=== PATIENT | male | born 1935 ===

== ENCOUNTER 2017-10-19 04:18 | Inpatient (IN) | payer MEDICARE ==
[2017-10-19 04:22] VITALS: BMI 18.8
--- NOTE | 2017-10-19 05:24 | ED PDOC ---
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 As per EMS, patient was found walking outside, and stated that he was just trying to walk to his niece's house in [facility], from his place in [place]. As per patient, he reports he was walking down the stairs in his house in his slippers, which were slippery, and fell forward. Otherwise, denies loss of consciousness, chest pain, numbness, tingling, nausea, vomiting, and anticoagulant use. Patient offers no complaints at this time. PMD: Nehemias Grissom (Cristopher Awan) Past Medical History Reviewed: Historical Data, Nursing Documentation, Vital Signs - Medical History PMH: No Chronic Diseases - Surgical History Surgical History: No Surg Hx - Family History Family History: States: Unknown Family Hx <Cristopher Awan E - Last Filed: 10/19/17 06:09> <Rito Bueno - Last Filed: 10/19/17 06:39> Vital Signs: Last Vital Signs Temp 97.7 F 10/19/17 04:22 Pulse 96 H 10/19/17 04:22 Resp 18 10/19/17 04:22 BP 143/81 10/19/17 04:22 Pulse Ox 98 10/19/17 06:09 - Allergies Allergies/Adverse Reactions: Allergies Allergy/AdvReac Type Severity Reaction Status Date / Time No Known Allergies Allergy Verified 10/19/17 04:22 Review of Systems ROS Statement: Except As Marked, All Systems Reviewed And Found Negative Constitutional: Positive for: Other (head injury) Cardiovascular: Negative for: Chest Pain Gastrointestinal: Negative for: Nausea, Vomiting Skin: Positive for: Other (abrasions) Neurological: Negative for: Numbness (or tingling), Other (loss of consciousness ) <Cristopher Awan E - Last Filed: 10/19/17 06:09> Physical Exam - Reviewed Nursing Documentation Reviewed: Yes Vital Signs Reviewed: Yes - Physical Exam Appears: Positive for: No Acute Distress Head Exam: Positive for: NORMOCEPHALIC. Negative for: ATRAUMATIC (superficial abrasions to left side forehead and left side zygomatic arch but without tenderness to face) Skin: Positive for: Warm, Dry Eye Exam: Positive for: Normal appearance. Negative for: Periorbital swelling, Periorbital tenderness ENT: Positive for: Normal ENT Inspection Neck: Positive for: Normal, Painless ROM, Supple Cardiovascular/Chest: Positive for: Regular Rate, Rhythm Respiratory: Positive for: Normal Breath Sounds. Negative for: Accessory Muscle Use, Respiratory Distress Gastrointestinal/Abdominal: Positive for: Normal Exam, Soft. Negative for: Tenderness Back: Positive for: Normal Inspection Extremity: Positive for: Normal ROM (Normal except: left shoulder: superficial abrasion, no tenderness / swelling / deformity; right anterior knee: superficial abrasion no tenderness / swelling / deformity; left anterior mid femur: minimal ecchymosis, mild tenderness, no swelling / deformity; bilateral knees: full ROM actively, no tenderness / swelling / deformity) Neurologic/Psych: Positive for: Alert, Oriented (x2, pt knows who the president is) <Cristopher Awan E - Last Filed: 10/19/17 06:09> - ECG O2 Sat by Pulse Oximetry: 98 (RA) Pulse Ox Interpretation: Normal - Radiology X-Ray: Interpreted by Me (L shoulder, R knee, L hip, pelvic, chest x-rays) X-Ray Interpretation: No Acute Disease <Cristopher Awan E - Last Filed: 10/19/17 06:09> - Laboratory Results Result Diagrams: 10/19/17 05:55 10/19/17 05:55 <Rito Bueno A - Last Filed: 10/19/17 06:39> Medical Decision Making <Cristopher Awan E - Last Filed: 10/19/17 06:09> <Rito Bueno A - Last Filed: 10/19/17 06:39> Medical Decision Making: Time: 0452 Initial Impression: injuries s/p fall Initial Plan: --Type and screen --CT head without contrast --CT maxillofacial without contrast --EKG --CMP --Trop I --CBC with differential --PTT --PT / INR --CXR --XR right knee --XR right femur --XR left hip --XR left shoulder --Urinalysis 0545 CT head w/o contrast: Question faint age-indeterminate left frontotemporal extra -axial densities/blood products. Results clarified with Dr. Sinha ([facility] radiologist) who states that this may be an subdural but he cannot be certain. Dr. Bueno made aware of CT findings. [address] results d/w Dr. Peres, neurosurgery telephone clerk telegraph office, who does not recommend any further imaging or any other interventions at this time. Scribe Attestation: Documented by Guerline Roberts acting as a scribe for Cristopher Awan PA-C. Provider Scribe Attestation: All medical record entries made by the Scribe were at my direction and personally dictated by me. I have reviewed the chart and agree that the record accurately reflects my personal performance of the history, physical exam, medical decision making, and the department course for this patient. I have also personally directed, reviewed, and agree with the discharge instructions and disposition. (Cristopher Awan) Disposition - Patient ED Disposition Is Patient to be Admitted: Transfer of Care (Dr. Bueno continued care at 0600 ) - Disposition Disposition: Transfer of Care Disposition Time: 06:00 <Cristopher Awan - Last Filed: 10/19/17 06:09> - Patient ED Disposition Is Patient to be Admitted: Yes Discussed With : Alhaji Howard Doctor Will See Patient In The: Hospital Counseled Patient/Family Regarding: Studies Performed, Diagnosis - Pt Status Changed To: Hospital Disposition Of: Observation - POA Present On Arrival: Falls Or Trauma <Rito Bueno - Last Filed: 10/19/17 06:39> - Clinical Impression Clinical Impression: Head injury, Abrasions of multiple sites - Disposition Condition: FAIR
[2017-10-19 06:13] LABS: BASO % 0.2 % (0.0-2.0); EOS % 0.1 % (0.0-4.0); HEMOGLOBIN 10.8 g/dL (12.0-18.0); LYMPH # 0.8 K/uL (1.0-4.3); LYMPH % 6.1 % (20.0-40.0); MEAN CORPUSCULAR HEMOGLOBIN 30.5 pg (27.0-31.0); MEAN CORPUSCULAR HGB CONC 32.8 g/dL (33.0-37.0); MEAN PLATELET VOLUME 8.8 fl (7.2-11.7); MONO # 0.8 K/uL (0.0-0.8); MONO % 5.8 % (0.0-10.0); NEUT # 11.7 K/uL (1.8-7.0); NEUT % 87.8 % (50.0-75.0); PLATELET COUNT 199 K/uL (130-400); RBC 3.53 Mil/uL (4.40-5.90); RED CELL DISTRIBUTION WIDTH 14.5 % (11.5-14.5); WHITE BLOOD COUNT 13.3 K/uL (4.8-10.8)
[2017-10-19 06:17] LABS: INR 1.1; PROTHROMBIN TIME 11.7 Seconds (9.8-13.1)
[2017-10-19 06:20] LABS: PARTIAL THROMBOPLASTIN TIME 32.1 Seconds (25.6-37.1)
[2017-10-19 06:22] LABS: ALB/GLOB RATIO 1.6 (1.0-2.1); ALBUMIN 4.4 g/dL (3.5-5.0); CALCIUM 9.6 mg/dL (8.4-10.2)
[2017-10-19 06:33] LABS: TROPONIN I 0.014 ng/mL (0.00-0.120)
--- NOTE | 2017-10-19 07:00 | CARD ---
APPROVED REPORT Date of service: 10/19/2017 EKG Measurement Heart [id number] <Conclusion> Normal sinus rhythm RSR' or QR pattern in V1 suggests right ventricular conduction delay Left anterior fascicular block Abnormal ECG
--- NOTE | 2017-10-19 08:51 | RAD ---
Date of service: 10/19/2017 PROCEDURE: RIGHT FEMUR RADIOGRAPHS HISTORY: trauma COMPARISON: None available. TECHNIQUE: Multiple views the right femur have been submitted for interpretation. FINDINGS: No acute fracture or destructive bony lesion appreciable. Degenerative changes seen at the right hip and knee joints. Local soft tissues appear diffusely unremarkable. IMPRESSION: No acute fracture appreciated or destructive bony lesion throughout the right femur.
--- NOTE | 2017-10-19 08:53 | RAD ---
Date of service: 10/19/2017 PROCEDURE: Right Knee Radiographs. HISTORY: trauma COMPARISON: None. FINDINGS: BONES: No acute fracture or destructive bony lesion identified. JOINTS: Limited medial femorotibial compartment joint space narrowing as well as the patellofemoral compartment compatible with degenerative joint disease. JOINT EFFUSION: None. OTHER FINDINGS: None. IMPRESSION: No acute fracture or dislocation right knee. Mild bicompartmental degenerative joint disease pattern.
--- NOTE | 2017-10-19 08:53 | RAD ---
PROCEDURE: Left Hip with pelvis Radiographs. HISTORY: trauma COMPARISON: None. FINDINGS: BONES: No acute fracture or destructive bony lesion identified including the pelvic ring diffusely. JOINTS: Symmetric degenerative changes seen at the bilateral hip joints moderately and mildly at the bilateral sacroiliac joints. Pubic symphysis appears intact. No subluxation or dislocation is appreciated at the left hip joint. SOFT TISSUES: Normal. OTHER FINDINGS: None. IMPRESSION: No acute fracture or dislocation left hip joint with the pelvic ring grossly intact as well.
[2017-10-19 08:58] LABS: URINE BILIRUBIN NEGATIVE (NEGATIVE); URINE BLOOD NEGATIVE (NEGATIVE); URINE CLARITY CLEAR (Clear); URINE COLOR YELLOW (YELLOW); URINE GLUCOSE (UA) NEG (Normal); URINE LEUKOCYTE ESTERASE NEG Leu/uL (Negative); URINE PROTEIN NEGATIVE (NEGATIVE); URINE UROBILINOGEN 0.2-1.0 mg/dL (0.2-1.0)
--- NOTE | 2017-10-19 08:58 | RAD ---
Date of service: 10/19/2017 PROCEDURE: Radiographs of the Left Shoulder HISTORY: trauma COMPARISON: No prior. FINDINGS: BONES: No acute fracture or destructive bony lesion identified. JOINTS: Marked degenerative changes seen at the glenohumeral joint with mild degenerative changes of the acromioclavicular joint. Old healed fracture of the left humeral head is identified. SOFT TISSUES: Tendinopathy related calcifications seen superior to the left humeral head. Prominent heterotopic calcifications seen inferior to the glenohumeral joint OTHER FINDINGS: None. IMPRESSION: No acute fracture or dislocation. Old healed fracture inferior left humeral head. Tendinopathy related soft tissue calcifications are seen superiorly.
--- NOTE | 2017-10-19 09:04 | RAD ---
Date of service: 10/19/2017 HISTORY: clearance COMPARISON: No prior. FINDINGS: LUNGS: Biapical pleural thickening is identified with limited reticular markings increased the bilateral bases. No alveolitis bilaterally. PLEURA: No significant pleural effusion identified, no pneumothorax apparent. CARDIOVASCULAR: No pulmonary vascular congestion. Upper limits normal cardiac size. OSSEOUS STRUCTURES: No significant abnormalities. VISUALIZED UPPER ABDOMEN: Normal. OTHER FINDINGS: None. IMPRESSION: Reticular markings are increased at the bases and there is biapical pleural thickening. No alveolitis bilaterally. Borderline cardiomegaly. No pulmonary vascular congestion.
[2017-10-19 10:01] LABS: BASOPHIL 1 % (0-2); LYMPHOCYTE 6 % (20-50); MONOCYTE 3 % (0-10); NEUTROPHIL 90 % (42-75); PLATELET ESTIMATE NORMAL (NORMAL); TOTAL CELLS COUNTED 100
[2017-10-19 10:02] LABS: HYPOCHROMIC SLIGHT; OVALOCYTES SLIGHT; SCHISTOCYTES SLIGHT
--- NOTE | 2017-10-19 10:51 | CP.PCM.PN ---
Subjective - Date & Time of Evaluation Date of Evaluation: 10/19/17 Time of Evaluation: 10:49 - Subjective Subjective: 82 y o male who fell preliminary report of CT head w/o contrast: Question faint age-indeterminate left frontotemporal extra-axial densities/blood products. Results clarified with Dr. Sinha ([facility] radiologist) who states that this may be an subdural but he cannot be certain. Official report not yet on chart I have reviewed films and do not see any significant collection of blood. There is no indication for any treatment for this and unless there is a change in mental status patient needs no further work up of treatment for this possible finding Objective - Vital Signs/Intake and Output Vital Signs (last 24 hours): Temp Pulse Resp BP Pulse Ox 98.1 F 85 12 130/62 99 10/19/17 07:59 10/19/17 08:07 10/19/17 08:07 10/19/17 08:07 10/19/17 08:07 - Labs Labs: 10/19/17 05:55 10/19/17 05:55 PT 11.7 Seconds (9.8-13.1) 10/19/17 05:55 INR 1.1 10/19/17 05:55 APTT 32.1 Seconds (25.6-37.1) 10/19/17 05:55
--- NOTE | 2017-10-19 11:08 | CT ---
Date of service: 10/19/2017 PROCEDURE: CT HEAD WITHOUT CONTRAST. HISTORY: trauma COMPARISON: None available. TECHNIQUE: Axial computed tomography images were obtained through the head/brain without intravenous contrast. Radiation dose: Total exam DLP = 690.56 mGy-cm. This CT exam was performed using one or more of the following dose reduction techniques: Automated exposure control, adjustment of the mA and/or kV according to patient size, and/or use of iterative reconstruction technique. FINDINGS: HEMORRHAGE: No intracranial hemorrhage. BRAIN: A small chronic lacune is seen at the body of the caudate nucleus with a tiny chronic lacune or dilated perivascular space noted in the posterior margins of the left lenticular nucleus. Limited expansion of the ventricular sulcal sternal spaces is appreciate as well as lucency surrounding the periventricular white matter at the lateral ventricles bilaterally. There is no mass effect in the posterior fossa contents appear unremarkable. No suspicious extra-axial fluid collection identified. VENTRICLES: Unremarkable. No hydrocephalus. CALVARIUM: No destructive bony lesion or displaced fracture identified including through the skullbase. A tiny left frontal scalp hematoma is appreciated. PARANASAL SINUSES: Unremarkable as visualized. No significant inflammatory changes. MASTOID AIR CELLS: Unremarkable as visualized. No inflammatory changes. OTHER FINDINGS: None. IMPRESSION: Limited age-related neuro degenerative change are identified which appear age-appropriate with 1 or 2 chronic lacunes seen at the left basal ganglia. No acute intracranial findings. No fracture. Small left frontal scalp hematoma identified. Concordant preliminary report from [facility], 10/19/2017.
--- NOTE | 2017-10-19 11:11 | CT ---
Date of service: 10/19/2017 PROCEDURE: CT MAXILLOFACIAL BONES WITHOUT CONTRAST HISTORY: trauma COMPARISON: None available. TECHNIQUE: Contiguous axial CT images of the maxillofacial bones were obtained. Coronal and sagittal reformats were generated. Radiation dose: Total exam DLP = 730.88 mGy-cm. This CT exam was performed using one or more of the following dose reduction techniques: Automated exposure control, adjustment of the mA and/or kV according to patient size, and/or use of iterative reconstruction technique. FINDINGS: NASAL BONES: Unremarkable. ORBITS: Unremarkable. PARANASAL SINUSES/ MASTOIDS: Clear. MAXILLA: Unremarkable. MANDIBLE/ TEMPOROMANDIBULAR JOINTS: Unremarkable. SKULL BASE: Unremarkable. TEMPORAL BONES: Middle ears and mastoid grossly unremarkable. OTHER FINDINGS: Minimal left frontal scalp hematoma noted. IMPRESSION: Minimal left frontal scalp hematoma. No fracture throughout the facial bones as discussed above. Concordant preliminary report from [facility], 10/19/2017.
--- NOTE | 2017-10-19 15:30 | CP.PCM.CON ---
History of Present Illness - History of Present Illness History of Present Illness: consult requested for AMS 82 year old male presents to the ED via EMS for evaluation of abrasions and head injury occurring prior to arrival. As per EMS, patient was found walking outside, and stated that he was just trying to walk to his niece's house in [facility], from his place in [place]. As per patient, he reports he was walking down the stairs in his house in his slippers, which were slippery, and fell forward. Pt on evaluation, cooperative good eye contact, reported he has been residing by himself, has immigrated from [place] since , pt oriented to person partially to place and partially to time , reported has been retired, started he lives on ready prepared meals and stated he has noted himself to be forgetful lately was able to state it is 2018 but was not able to state the month denied any mood or anxiety symptoms, denied S/H I denied perceptual disturbances Past Patient History - Past Medical History & Family History Past Medical History?: No - Past Social History Smoking Status: Never Smoked - CARDIAC Hx Cardiac Disorders: No (Patient denies) - PULMONARY Hx Respiratory Disorders: Yes Other/Comment: patient states having "lung problem" unable to specify what problem is - NEUROLOGICAL Hx Neurological Disorder: No - HEENT Hx HEENT Problems: No - RENAL Hx Chronic Kidney Disease: No - ENDOCRINE/METABOLIC Hx Endocrine Disorders: No - HEMATOLOGICAL/ONCOLOGICAL Hx Blood Disorders: No Hx AIDS: No Hx Human Immunodeficiency Virus (HIV): No - INTEGUMENTARY Hx Dermatological Problems: No - MUSCULOSKELETAL/RHEUMATOLOGICAL Hx Musculoskeletal Disorders: No Hx Falls: Yes - GASTROINTESTINAL Hx Gastrointestinal Disorders: No - GENITOURINARY/GYNECOLOGICAL Hx Genitourinary Disorders: No - PSYCHIATRIC Hx Psychophysiologic Disorder: No Hx Substance Use: No - SURGICAL HISTORY Hx Surgeries: No (unable to obtain) - ANESTHESIA Hx Anesthesia: No Hx Anesthesia Reactions: No Hx Malignant Hyperthermia: No Has any member of the family had a problem w/ anesthesia?: No Meds Allergies/Adverse Reactions: Allergies Allergy/AdvReac Type Severity Reaction Status Date / Time No Known Allergies Allergy Verified 10/19/17 04:22 - Medications Medications: Current Medications Acetaminophen (Tylenol 325mg Tab) 650 mg PO Q6 PRN PRN Reason: Headache Last Admin: 10/19/17 12:49 Dose: 650 mg Bacitracin (Bacitracin Oint) 1 applic TOP BID JOSE J Results - Vital Signs Recent Vital Signs: Last Vital Signs Temp 98.4 F 10/19/17 12:05 Pulse 87 10/19/17 13:09 Resp 18 10/19/17 13:09 BP 125/67 10/19/17 12:05 Pulse Ox 99 10/19/17 12:05 - Labs Result Diagrams: 10/19/17 05:55 10/19/17 05:55 Labs: Laboratory Results - last 24 hr 10/19/17 10/19/17 10/19/17 04:24 05:55 05:55 WBC 13.3 H RBC 3.53 L Hgb 10.8 L Hct 32.9 L MCV 93.0 MCH 30.5 MCHC 32.8 L RDW 14.5 Plt Count 199 MPV 8.8 Neut % (Auto) 87.8 H Lymph % (Auto) 6.1 L Pepin % (Auto) 5.8 Eos % (Auto) 0.1 Baso % (Auto) 0.2 Neut # (Auto) 11.7 H Lymph # (Auto) 0.8 L Pepin # (Auto) 0.8 Eos # (Auto) 0.0 Baso # (Auto) 0.0 Neutrophils % (Manual) 90 H Lymphocytes % (Manual) 6 L Monocytes % (Manual) 3 Basophils % (Manual) 1 Platelet Estimate Normal Hypochromasia (manual) Slight Ovalocytes Slight Schistocytes Slight PT INR APTT Sodium 139 Potassium 4.8 Chloride 110 H Carbon Dioxide 22 Anion Gap 12 BUN 35 H Creatinine 2.0 H Est GFR ( Amer) 39 Est GFR (Non-Af Amer) 32 POC Glucose (mg/dL) 111 H Random Glucose 104 Calcium 9.6 Total Bilirubin 0.6 AST 28 ALT 20 L Alkaline Phosphatase 39 Troponin I 0.0140 Total Protein 7.2 Albumin 4.4 Globulin 2.8 Albumin/Globulin Ratio 1.6 Urine Color Urine Clarity Urine pH Ur Specific [place] Urine Protein Urine Glucose (UA) Urine Ketones Urine Blood Urine Nitrate Urine Bilirubin Urine Urobilinogen Ur Leukocyte Esterase Urine RBC (Auto) Urine Microscopic WBC Blood Type Antibody Screen BBK History Checked 10/19/17 10/19/17 10/19/17 05:55 05:55 08:19 WBC RBC Hgb Hct MCV MCH MCHC RDW Plt Count MPV Neut % (Auto) Lymph % (Auto) [place] % (Auto) Eos % (Auto) Baso % (Auto) Neut # (Auto) Lymph # (Auto) [place] # (Auto) Eos # (Auto) Baso # (Auto) Neutrophils % (Manual) Lymphocytes % (Manual) Monocytes % (Manual) Basophils % (Manual) Platelet Estimate Hypochromasia (manual) Ovalocytes Schistocytes PT 11.7 INR 1.1 APTT 32.1 Sodium Potassium Chloride Carbon Dioxide Anion Gap BUN Creatinine Est GFR ( Amer) Est GFR (Non-Af Amer) POC Glucose (mg/dL) Random Glucose Calcium Total Bilirubin AST ALT Alkaline Phosphatase Troponin I Total Protein Albumin Globulin Albumin/Globulin Ratio Urine Color Yellow Urine Clarity Clear Urine pH 5.0 Ur Specific [place] 1.013 Urine Protein Negative Urine Glucose (UA) Neg Urine Ketones Trace Urine Blood Negative Urine Nitrate Negative Urine Bilirubin Negative Urine Urobilinogen 0.2-1.0 Ur Leukocyte Esterase Neg Urine RBC (Auto) 4 H Urine Microscopic WBC 1 Blood Type B NEGATIVE Antibody Screen Negative BBK History Checked No verified bt Assessment & Plan - Assessment and Plan (Free Text) 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 social media & mobile manager to investigate current living situation as pt at current mental status could not support self for instrumental daily activities
--- NOTE | 2017-10-19 16:05 | CP.PCM.HP ---
History of Present Illness - History of Present Illness History of Present Illness: 82 y/o M, unknown PMHx but using reparatory inhaler but unspecified lung problem , Pt was brought to ER [facility], [place] to be valuated for unwitnessed fall or syncope on DOA, prior to arrival to hospital, sustaining injury associated to event and c/o of headache. Worsening symptom: AMS, Ox2. As per EMS, Pt was found walking on [address] wearing PJ's and slippers with noticed with hematoma and abrasion on forehead, R knee, L shoulder. As per Pt, was associated to a fall while he was walking down the stairs in his house in his slippers, which were slippery and fell forward. Aggravated factor: Poor historian. Pt denied: Fever, chills, n/v/d, CP, Palpitations, numbness, SOB, cough, urinary symptoms. Head CT showed: Small L frontal hematoma, limited age related neuro degenerative change. Maxillofacial CT: Minimal L frontal scalp hematoma, no Fx thought the facial bone. Femur X-Ray, Hip & Pelvis X-Ray and R knee Ray: No Fx or dislocations. L shoulder X-Ray: No Fx or dislocation. Old healed Fx inferior L humeral head. EKG: RSR or QR pattern in V1 suggests R ventricular conduction delay. L anterior fascicular blocks. CXR: Reticular marking are increased at the bases, biapical pleural thickening. Present on Admission - Present on Admission Any Indicators Present on Admission: No Review of Systems - Constitutional Constitutional: Frequent Falls, Headache, Weakness - EENT Eyes: Other (negative) Ears: Other (negative) Nose/Mouth/Throat: Other (negative) - Cardiovascular Cardiovascular: Other (negative) - Respiratory Respiratory: Other (negative) - Gastrointestinal Gastrointestinal: Other (negative) - Genitourinary Genitourinary: Other (negative) - Musculoskeletal Musculoskeletal: Muscle Weakness, Other (L shoulder, R knee contussion) - Integumentary Integumentary: Wounds - Neurological Neurological: Confusion, Headaches - Psychiatric Psychiatric: Confusion - Endocrine Endocrine: Other (negative) - Hematologic/Lymphatic Hematologic: Other (negative) Past Patient History - Past Medical History & Family History Past Medical History?: No Pertinent Family History: Unknown - Past Social History Smoking Status: Never Smoked Alcohol: None Drugs: Denies Home Situation {Lives}: Alone - CARDIAC Hx Cardiac Disorders: No (Patient denies) - PULMONARY Hx Respiratory Disorders: Yes Other/Comment: patient states having "lung problem" unable to specify what problem is - NEUROLOGICAL Hx Neurological Disorder: No - HEENT Hx HEENT Problems: No - RENAL Hx Chronic Kidney Disease: No - ENDOCRINE/METABOLIC Hx Endocrine Disorders: No - HEMATOLOGICAL/ONCOLOGICAL Hx Blood Disorders: No Hx AIDS: No Hx Human Immunodeficiency Virus (HIV): No - INTEGUMENTARY Hx Dermatological Problems: No - MUSCULOSKELETAL/RHEUMATOLOGICAL Hx Musculoskeletal Disorders: Yes Hx Falls: Yes Hx Fractures: Yes (Inferior L humeral head ( healed)) - GASTROINTESTINAL Hx Gastrointestinal Disorders: No - GENITOURINARY/GYNECOLOGICAL Hx Genitourinary Disorders: No - PSYCHIATRIC Hx Psychophysiologic Disorder: No Hx Substance Use: No - SURGICAL HISTORY Hx Surgeries: No (unable to obtain) - ANESTHESIA Hx Anesthesia: No Hx Anesthesia Reactions: No Hx Malignant Hyperthermia: No Has any member of the family had a problem w/ anesthesia?: No Meds Allergies/Adverse Reactions: Allergies Allergy/AdvReac Type Severity Reaction Status Date / Time No Known Allergies Allergy Verified 10/19/17 04:22 Physical Exam - Constitutional Appears: Confused - Head Exam Additional comments: Superficial abrasion to left side forehead - Eye Exam Eye Exam: PERRL - ENT Exam ENT Exam: Normal Exam - Neck Exam Neck exam: Positive for: Normal Inspection - Respiratory Exam Respiratory Exam: NORMAL BREATHING PATTERN - Cardiovascular Exam Cardiovascular Exam: REGULAR RHYTHM - GI/Abdominal Exam GI & Abdominal Exam: Normal Bowel Sounds, Soft - Extremities Exam Additional comments: Superficial abrasion L shoulder - Back Exam Back exam: NORMAL INSPECTION - Neurological Exam Neurological exam: Alert Additional comments: Awake, confused , no focal motor deficit - Psychiatric Exam Additional comments: Confused - Skin Skin Exam: Warm Results - Vital Signs Recent Vital Signs: Last Vital Signs Temp 98.8 F 10/19/17 15:39 Pulse 66 10/19/17 15:39 Resp 18 10/19/17 15:39 BP 119/66 10/19/17 15:39 Pulse Ox 95 10/19/17 15:39 reviewed Kelsey - Labs Result Diagrams: 10/19/17 05:55 10/20/17 04:20 Labs: Laboratory Results - last 24 hr 10/19/17 10/19/17 10/19/17 04:24 05:55 05:55 WBC 13.3 H RBC 3.53 L Hgb 10.8 L Hct 32.9 L MCV 93.0 MCH 30.5 MCHC 32.8 L RDW 14.5 Plt Count 199 MPV 8.8 Neut % (Auto) 87.8 H Lymph % (Auto) 6.1 L [place] % (Auto) 5.8 Eos % (Auto) 0.1 Baso % (Auto) 0.2 Neut # (Auto) 11.7 H Lymph # (Auto) 0.8 L [place] # (Auto) 0.8 Eos # (Auto) 0.0 Baso # (Auto) 0.0 Neutrophils % (Manual) 90 H Lymphocytes % (Manual) 6 L Monocytes % (Manual) 3 Basophils % (Manual) 1 Platelet Estimate Normal Hypochromasia (manual) Slight Ovalocytes Slight Schistocytes Slight PT INR APTT Sodium 139 Potassium 4.8 Chloride 110 H Carbon Dioxide 22 Anion Gap 12 BUN 35 H Creatinine 2.0 H Est GFR ( Amer) 39 Est GFR (Non-Af Amer) 32 POC Glucose (mg/dL) 111 H Random Glucose 104 Calcium 9.6 Total Bilirubin 0.6 AST 28 ALT 20 L Alkaline Phosphatase 39 Troponin I 0.0140 Total Protein 7.2 Albumin 4.4 Globulin 2.8 Albumin/Globulin Ratio 1.6 Urine Color Urine Clarity Urine pH Ur Specific Wesley Urine Protein Urine Glucose (UA) Urine Ketones Urine Blood Urine Nitrate Urine Bilirubin Urine Urobilinogen Ur Leukocyte Esterase Urine RBC (Auto) Urine Microscopic WBC Blood Type Blood Type Confirm Antibody Screen BBK History Checked 10/19/17 10/19/17 10/19/17 05:55 05:55 08:19 WBC RBC Hgb Hct MCV MCH MCHC RDW Plt Count MPV Neut % (Auto) Lymph % (Auto) [place] % (Auto) Eos % (Auto) Baso % (Auto) Neut # (Auto) Lymph # (Auto) [place] # (Auto) Eos # (Auto) Baso # (Auto) Neutrophils % (Manual) Lymphocytes % (Manual) Monocytes % (Manual) Basophils % (Manual) Platelet Estimate Hypochromasia (manual) Ovalocytes Schistocytes PT 11.7 INR 1.1 APTT 32.1 Sodium Potassium Chloride Carbon Dioxide Anion Gap BUN Creatinine Est GFR ( Amer) Est GFR (Non-Af Amer) POC Glucose (mg/dL) Random Glucose Calcium Total Bilirubin AST ALT Alkaline Phosphatase Troponin I Total Protein Albumin Globulin Albumin/Globulin Ratio Urine Color Yellow Urine Clarity Clear Urine pH 5.0 Ur Specific Wesley 1.013 Urine Protein Negative Urine Glucose (UA) Neg Urine Ketones Trace Urine Blood Negative Urine Nitrate Negative Urine Bilirubin Negative Urine Urobilinogen 0.2-1.0 Ur Leukocyte Esterase Neg Urine RBC (Auto) 4 H Urine Microscopic WBC 1 Blood Type B NEGATIVE Blood Type Confirm Antibody Screen Negative BBK History Checked No verified bt 10/19/17 14:46 WBC RBC Hgb Hct MCV MCH MCHC RDW Plt Count MPV Neut % (Auto) Lymph % (Auto) [place] % (Auto) Eos % (Auto) Baso % (Auto) Neut # (Auto) Lymph # (Auto) [place] # (Auto) Eos # (Auto) Baso # (Auto) Neutrophils % (Manual) Lymphocytes % (Manual) Monocytes % (Manual) Basophils % (Manual) Platelet Estimate Hypochromasia (manual) Ovalocytes Schistocytes PT INR APTT Sodium Potassium Chloride Carbon Dioxide Anion Gap BUN Creatinine Est GFR ( Amer) Est GFR (Non-Af Amer) POC Glucose (mg/dL) Random Glucose Calcium Total Bilirubin AST ALT Alkaline Phosphatase Troponin I Total Protein Albumin Globulin Albumin/Globulin Ratio Urine Color Urine Clarity Urine pH Ur Specific Wesley Urine Protein Urine Glucose (UA) Urine Ketones Urine Blood Urine Nitrate Urine Bilirubin Urine Urobilinogen Ur Leukocyte Esterase Urine RBC (Auto) Urine Microscopic WBC Blood Type Blood Type Confirm B NEGATIVE Antibody Screen BBK History Checked reviewed J.P. - EKG Data EKG comments: reviewed J.P. - Imaging and Cardiology CT scan - head Status: Report reviewed by me (JAngelP.) Additional comment: R Knee X-Ray, L shoulder X-Ray, Maxillofacial CT, Femur X-Ray and Hip/Pelvis X- Ray : All reviewed J.P. Assessment & Plan (1) Head injury Status: Acute Priority: High (2) Abrasions of multiple sites Status: Acute Priority: High (3) Hx of fall Status: Acute Priority: High (4) Syncope Status: Acute (5) Dementia Status: Chronic (6) Abnormal EKG Status: Acute - Assessment and Plan (Free Text) Plan: Continue Bacitracin, Tylenol. Psychiatric consult appreciated, f/u Cardiac and Neurology consult - Date & Time Date: 10/19/17 Time: 11:40
[2017-10-19] MEDS: Bacitracin OINT 15GM TOP SCH (17:04)
[2017-10-20 05:20] LABS: ALB/GLOB RATIO 1.3 (1.0-2.1); ALBUMIN 4.1 g/dL (3.5-5.0); CALCIUM 9.5 mg/dL (8.4-10.2)
[2017-10-20] MEDS: Bacitracin OINT 15GM TOP SCH ×2 (09:08→16:02)
--- NOTE | 2017-10-20 11:06 | MRI ---
Date of service: 10/19/2017 PROCEDURE: MRI BRAIN WITHOUT CONTRAST HISTORY: AMS COMPARISON: None available. TECHNIQUE: Multiplanar, multisequence MR images of the brain were obtained without intravenous contrast enhancement. FINDINGS: HEMORRHAGE: None DWI: No evidence of an acute or early subacute infarction. BRAIN PARENCHYMA: Zero there is proportional diffuse cerebral atrophy manifest by expansion of the ventricular sulcal sternal spaces, there is a focal area of prominent CSF at the right parietal vertex posteriorly which measures 2.4 x 3.0 x 1.8 cm displacing parenchyma and cortical veins peripherally. It parallels CSF signal intensity across all sequences and exhibits no restricted diffusion and is most compatible with a small arachnoid cyst. No additional extra-axial findings. Limited mass effect is exerted by this cyst at the right parietal lobe with no additional mass effect throughout the remainder of the intracranial contents. Midline brain anatomy is unremarkable with the posterior fossa nonfocal as well. Limited chronic microangiopathy is manifest are periventricular and occasional deep subcortical and centrum semiovale white matter changes sparing the corpus callosum. VENTRICLES: Unremarkable. No hydrocephalus. CRANIUM: Unremarkable. ORBITS: Grossly unremarkable. PARANASAL SINUSES/MASTOIDS: Clear VASCULAR SYSTEM: Skull base flow voids intact. OTHER FINDINGS: None. IMPRESSION: 1. No evidence of an acute or subacute brain infarction. No significant generalized mass effect. 2. 3.0 cm arachnoid cysts right parietal vertex posteriorly. Limited local mass effect is exerted by this structure on the right parietal lobe. 3. Mild age-related neuro degenerative changes.
--- NOTE | 2017-10-20 15:56 | CARD ---
APPROVED REPORT Date of service: 10/20/2017 EXAM: Two-dimensional and M-mode echocardiogram with Doppler and color Doppler. Other Information Quality : GoodRhythm : NSR INDICATION Syncope 2D DIMENSIONS IVSd1.08 (0.7-1.1cm)LVDd4.24 (3.9-5.9cm) LVOT Diameter2.34 (1.8-2.4cm)PWd1.11 (0.7-1.1cm) IVSs1.14 (0.8-1.2cm)LVDs2.17 (2.5-4.0cm) FS (%) 48.8 %PWs1.48 (0.8-1.2cm) M-Mode DIMENSIONS Left Atrium (MM)2.95 (2.5-4.0cm)IVSd0.91 (0.7-1.1cm) Aortic Root3.45 (2.2-3.7cm)LVDd5.27 (4.0-5.6cm) Aortic Cusp Exc.1.57 (1.5-2.0cm)PWd1.10 (0.7-1.1cm) IVSs1.38 cmFS (%) 54 % LVDs2.40 (2.0-3.8cm)PWs1.38 cm Aortic Valve AoV Peak Velocity2.0cm/sAoV VTI36.7cmAO Peak GR.18mmHg LVOT Peak Fvdowlye584.1cm/sLVOT VTI23.35cmAO Mean GR.10mmHg AI P 1/2 Qujs854ve Mitral Valve MV E Iqtfcikn35.4cm/sMV DECEL [id number] A Izjaptmy28.7cm/s MV GPR08vrU/A ratio0.6MVA (PHT)2.39cm2 TDI Lateral E' Peak V8.15cm/sMedial E' Peak V8.64cm/sE/Lateral E'6.1 E/Medial E'5.7 Pulmonary Valve PV Peak Frfwbzoe542.2cm/s Tricuspid Valve TR Peak Iyxfqfhs567ey/sRAP BWPGAECJ30toCfJD Peak Gr.19mmHg MUMC68vqLq LEFT VENTRICLE The left ventricle is normal size. There is normal left ventricular wall thickness. The left ventricular systolic function is normal. The estimated ejection fraction is 60-65% No regional wall motion abnormalities noted.. Transmitral Doppler flow pattern is Grade I-abnormal relaxation pattern. No left ventricle thrombus noted on this study. There is no ventricular septal defect visualized. There is no mass noted in the left ventricle. RIGHT VENTRICLE The right ventricle is normal size. There is normal right ventricular wall thickness. The right ventricular systolic function is normal. ATRIA The left atrium size is normal. The right atrium size is normal. The interatrial septum is intact with no evidence for an atrial septal defect. AORTIC VALVE The aortic valve is normal in structure. Mild sclerosis Mild aortic regurgitation is present. There is no aortic valvular stenosis. MITRAL VALVE The mitral valve is normal in structure. There is no mitral valve stenosis. There is mild mitral valve regurgitation noted. TRICUSPID VALVE The tricuspid valve is normal in structure. There is mild tricuspid valve regurgitation noted. PASP within normal limits PULMONIC VALVE The pulmonary valve is normal in structure. There is no pulmonic valvular regurgitation. GREAT VESSELS The aortic root is normal in size. The ascending aorta is normal in size. The pulmonary artery is normal. The IVC is normal in size and collapses >50% with inspiration. PERICARDIAL EFFUSION There is no pericardial effusion. <Conclusion> Mild aortic insufficiency Mild mitral insufficiency Mild TR with normal PAP Normal LV systolic function with doppler hemodynamics consistent with abnormal relaxation The estimated ejection fraction is 60-65%
--- NOTE | 2017-10-20 17:51 | US ---
Date of service: 10/20/2017 PROCEDURE: Duplex ultrasound of the carotid and vertebral arteries. HISTORY: syncope COMPARISON: None available. TECHNIQUE: Grayscale and duplex Doppler evaluation of the cervical carotid and vertebral arteries were performed. The common carotid, carotid bifurcations and cervical ICA and proximal ECA were evaluated. The vertebral arteries were evaluated for gross patency and direction. FINDINGS: RIGHT CAROTID ARTERIES: Common Carotid Artery: Intimal thickening is present Maximal flow velocity of 51.4 cm/s. Carotid Bifurcation: Normal. Internal Carotid Artery:Heterogeneous plaque formation. tortuous ICA. Maximal flow velocity of 76.4 cm/s. External Carotid Artery (proximal branches): Normal. Maximal flow velocity of 69.8 cm/s. ICA/CCA Ratio: 1.7 LEFT CAROTID ARTERIES: Common Carotid Artery: Intimal thickening is present Maximal flow velocity of 85.5 cm/s. Carotid Bifurcation: Normal. Internal Carotid Artery:Heterogeneous plaque formation. Maximal flow velocity of 85.4 cm/s. External Carotid Artery (proximal branches): Normal. Maximal flow velocity of 59.5 cm/s. ICA/CCA Ratio: 1.7 VERTEBRAL ARTERIES: Right Vertebral Artery: Patent. Antegrade flow. Left Vertebral Artery: Patent. Antegrade flow. OTHER FINDINGS: None. IMPRESSION: Right ICA degree of stenosis: Less than 50% Left ICA degree of stenosis: Less than 50% Reference Internal Carotid Artery (ICA) Peak Systolic Velocity (PSV) for above: 1. Less than 50% stenosis less than 125 cm/s peak systolic velocity 2. 50-69% stenosis 125-230cm/s peak systolic velocity 3. Greater than 70% but less than near occlusion greater than 230 cm/s peak systolic velocity
--- NOTE | 2017-10-20 17:59 | CP.PCM.PN ---
Subjective - Date & Time of Evaluation Date of Evaluation: 10/20/17 Time of Evaluation: 12:50 - Subjective Subjective: F/U Fall/Trauma. calm , cooperative, no AD Objective - Vital Signs/Intake and Output Vital Signs (last 24 hours): Temp Pulse Resp BP Pulse Ox 98.2 F 69 20 132/70 99 10/20/17 16:29 10/20/17 16:29 10/20/17 16:29 10/20/17 16:29 10/20/17 16:29 - Medications Medications: Current Medications Acetaminophen (Tylenol 325mg Tab) 650 mg PO Q6 PRN PRN Reason: Headache Last Admin: 10/20/17 16:01 Dose: 650 mg Aspirin (Aspirin Chewable) 81 mg PO DAILY JOSE J Bacitracin (Bacitracin Oint) 1 applic TOP BID JOSE J Last Admin: 10/20/17 16:02 Dose: 1 applic - Labs Labs: 10/19/17 05:55 10/20/17 04:20 PT 11.7 Seconds (9.8-13.1) 10/19/17 05:55 INR 1.1 10/19/17 05:55 APTT 32.1 Seconds (25.6-37.1) 10/19/17 05:55 - Constitutional Appears: No Acute Distress - Head Exam Additional comments: Superficial abrasion to left side forehead - Eye Exam Eye Exam: PERRL - ENT Exam ENT Exam: Normal Exam - Neck Exam Neck Exam: Normal Inspection - Respiratory Exam Respiratory Exam: NORMAL BREATHING PATTERN - Cardiovascular Exam Cardiovascular Exam: REGULAR RHYTHM - GI/Abdominal Exam GI & Abdominal Exam: Soft, Normal Bowel Sounds - Extremities Exam Additional comments: Superficial abrasion L shoulder - Back Exam Back Exam: NORMAL INSPECTION - Neurological Exam Neurological Exam: Alert, Awake Additional comments: forgetful, craneal nerves and motor no gross deficit gait steady with PT - Psychiatric Exam Additional comments: forgetful - Skin Skin Exam: Warm Assessment and Plan (1) Syncope Status: Acute (2) Head injury Status: Acute (3) Dementia Status: Chronic (4) Abrasions of multiple sites Status: Acute (5) Hx of fall Status: Acute (6) Abnormal EKG Status: Acute - Assessment and Plan (Free Text) Plan: f/u Neurology, Cardiac consult, PT, Patient lives alone Social Service working for placement
--- NOTE | 2017-10-20 22:53 | CP.PCM.CON ---
History of Present Illness - History of Present Illness History of Present Illness: 82 yr old male who was found wandering on [address] wearing his night clothes, and who had fallen. EMS tried to obtain history but patient was not able to state how he sustained this injury. He said that he may have slipped on the stairs, but the patient is a poor historian so history is obtained from the chart. Today on examination, he is not able to answer any questions, but can follow commands, and is pleasant. CT head shows extraaxial blood products. ROS: negative. PMH/pSH: not known. FH/SH: not known. All: nkda On exam: Alert, awake and oriented to himself. PERRL. CN 2-12normal. SPeech fluent. Can name simple objects. MMS: 25/30 cannot remember objects at 1minute. +apraxia motor: strong bilaterally with normal strength in all muscle groups SEnsory exam not accurate. +2 dtr ul and ll bl. Toes downgoing. Gait: normal. Past Patient History - Past Medical History & Family History Past Medical History?: No - Past Social History Smoking Status: Never Smoked Alcohol: None Drugs: Denies Home Situation {Lives}: Alone - CARDIAC Hx Cardiac Disorders: No (Patient denies) - PULMONARY Hx Respiratory Disorders: Yes Other/Comment: patient states having "lung problem" unable to specify what problem is - NEUROLOGICAL Hx Neurological Disorder: No - HEENT Hx HEENT Problems: No - RENAL Hx Chronic Kidney Disease: No - ENDOCRINE/METABOLIC Hx Endocrine Disorders: No - HEMATOLOGICAL/ONCOLOGICAL Hx Blood Disorders: No Hx AIDS: No Hx Human Immunodeficiency Virus (HIV): No - INTEGUMENTARY Hx Dermatological Problems: No - MUSCULOSKELETAL/RHEUMATOLOGICAL Hx Musculoskeletal Disorders: Yes Hx Falls: Yes Hx Fractures: Yes (Inferior L humeral head ( healed)) - GASTROINTESTINAL Hx Gastrointestinal Disorders: No - GENITOURINARY/GYNECOLOGICAL Hx Genitourinary Disorders: No - PSYCHIATRIC Hx Psychophysiologic Disorder: No Hx Substance Use: No - SURGICAL HISTORY Hx Surgeries: No (unable to obtain) - ANESTHESIA Hx Anesthesia: No Hx Anesthesia Reactions: No Hx Malignant Hyperthermia: No Has any member of the family had a problem w/ anesthesia?: No Meds Allergies/Adverse Reactions: Allergies Allergy/AdvReac Type Severity Reaction Status Date / Time No Known Allergies Allergy Verified 10/19/17 04:22 - Medications Medications: Current Medications Acetaminophen (Tylenol 325mg Tab) 650 mg PO Q6 PRN PRN Reason: Headache Last Admin: 10/20/17 16:01 Dose: 650 mg Aspirin (Aspirin Chewable) 81 mg PO DAILY JOSE J Bacitracin (Bacitracin Oint) 1 applic TOP BID JOSE J Last Admin: 10/20/17 16:02 Dose: 1 applic Results - Vital Signs Recent Vital Signs: Last Vital Signs Temp 98.2 F 10/20/17 20:04 Pulse 68 10/20/17 20:04 Resp 16 10/20/17 20:04 BP 115/66 10/20/17 20:04 Pulse Ox 97 10/20/17 20:04 - Labs Result Diagrams: 10/19/17 05:55 10/20/17 04:20 Labs: Laboratory Results - last 24 hr 10/20/17 10/20/17 10/20/17 04:20 04:20 16:00 Sodium 140 Potassium 4.4 Chloride 108 H Carbon Dioxide 21 L Anion Gap 15 BUN 30 H Creatinine 1.8 H Est GFR ( Amer) 44 Est GFR (Non-Af Amer) 36 POC Glucose (mg/dL) 87 Random Glucose 98 Hemoglobin A1c 5.6 Calcium 9.5 Phosphorus 3.9 Magnesium 2.0 Total Bilirubin 0.6 AST 27 ALT 19 L Alkaline Phosphatase 33 L Total Protein 7.2 Albumin 4.1 Globulin 3.1 Albumin/Globulin Ratio 1.3 TSH 3rd Generation 0.58 10/20/17 21:24 Sodium Potassium Chloride Carbon Dioxide Anion Gap BUN Creatinine Est GFR ( Amer) Est GFR (Non-Af Amer) POC Glucose (mg/dL) 97 Random Glucose Hemoglobin A1c Calcium Phosphorus Magnesium Total Bilirubin AST ALT Alkaline Phosphatase Total Protein Albumin Globulin Albumin/Globulin Ratio TSH 3rd Generation Assessment & Plan - Assessment and Plan (Free Text) Assessment: A: patient with what appears to be mild to moderate dementia, now with fall sustaining head injury. PLan; 1. B12, thyroid panel. 2. Start aricept 5 mg we will follow. Thank you Dr. Mariel Anthony Neurology
--- NOTE | 2017-10-21 01:50 | CON ---
DATE: 10/20/2017 HISTORY OF PRESENT ILLNESS: The patient is an 82 years old male who sustained a fall with left frontal bruising and right knee bruising. Apparently, the patient was found walking outside trying to reach his niece's house. The patient reported that he fell from his house stairs as he was going downstairs on a slippery stairway. The patient denied any loss of consciousness, chest pain or shortness of breath. SOCIAL HISTORY: The patient lives by himself. He is a nonsmoker. MEDICATIONS: The home medications are unobtainable. The current medications are bacitracin ointment twice a day, Tylenol 650 mg p.o. every 6 hours. REVIEW OF SYSTEMS: No reported sustained arrhythmia on the monitor and no reported hypertension or seizure activity. PHYSICAL EXAMINATION: GENERAL: The patient is an elderly male who does not appear to be in acute distress. VITAL SIGNS: Blood pressure 132/57, heart rate 69, temperature 98.3, respirations 20. HEENT: Left frontal bruising. NECK: No JVD. CHEST: Clear. HEART: S1, S2 are regular. ABDOMEN: Soft. EXTREMITIES: Dressings applied to the right knee with significant muscle wasting. LABORATORY DATA: Hemoglobin and hematocrit at 10.8 and 32.9, white count 15.3, platelet count 199,000. SMA-7, sodium 140, potassium 4.4, chloride 108, CO2 21, glucose 98, BUN 30, creatinine 1.8. INR is 1.1. PTT is 32.1. EKG revealed sinus rhythm at rate of 95. RSR pattern in V1, left anterior fascicular block. Echocardiogram revealed mild aortic insufficiency, mild mitral insufficiency, mild tricuspid regurgitation with normal pulmonary artery pressure. Normal left ventricular systolic function. Estimated ejection fraction at 60% to 65%. Brain MRI revealed no evidence of acute or subacute brain infarction. No significant generalized mass effect. Mild age-related neurodegenerative changes. Right femur x-ray, no acute fracture. Hip and pelvis x-ray, no acute fracture or dislocation of the left hip joint with the pelvic ring grossly intact. Left shoulder x-ray, no acute fracture or dislocation, old healed fracture inferior left humerus head. A maxillofacial CT scan without contrast, minimal left frontal scalp hematoma. No fracture to the artificial bones. Head CT scan without contrast, limited age-related neurodegenerative changes with one or two chronic lacunes seen at the left basal ganglia. No acute intracranial findings. Right knee x-ray, no acute fracture or dislocation of the right knee. ASSESSMENT: 1. Status post fall, rule out syncopal episode. 2. Chronic renal insufficiency. 3. Mild aortic insufficiency. 4. Mild mitral insufficiency. 5. Abnormal electrocardiogram with evidence of left anterior fascicular block. RECOMMENDATIONS: Start aspirin at 81 mg once a day, continue telemetry monitoring. Obtain carotid Doppler. Reg Stanley MD
[2017-10-21] MEDS: Bacitracin OINT 15GM TOP SCH ×2 (09:04→16:47)
--- NOTE | 2017-10-21 15:58 | CP.PCM.PN ---
Subjective - Date & Time of Evaluation Date of Evaluation: 10/21/17 Time of Evaluation: 12:10 - Subjective Subjective: F/U Fall/Trauma Pt calm, eating well, family at bedside. Objective - Vital Signs/Intake and Output Vital Signs (last 24 hours): Temp Pulse Resp BP Pulse Ox 98.8 F 78 20 121/69 97 10/21/17 15:39 10/21/17 15:39 10/21/17 15:39 10/21/17 15:39 10/21/17 15:39 - Medications Medications: Current Medications Acetaminophen (Tylenol 325mg Tab) 650 mg PO Q6 PRN PRN Reason: Headache Last Admin: 10/20/17 16:01 Dose: 650 mg Aspirin (Aspirin Chewable) 81 mg PO DAILY [facility] Last Admin: 10/21/17 09:04 Dose: 81 mg Bacitracin (Bacitracin Oint) 1 applic TOP BID [facility] Last Admin: 10/21/17 09:04 Dose: 1 applic - Labs Labs: 10/19/17 05:55 10/20/17 04:20 PT 11.7 Seconds (9.8-13.1) 10/19/17 05:55 INR 1.1 10/19/17 05:55 APTT 32.1 Seconds (25.6-37.1) 10/19/17 05:55 - Constitutional Appears: No Acute Distress - Head Exam Additional comments: Superficial abrasion L side of head - Eye Exam Eye Exam: PERRL - ENT Exam ENT Exam: Normal Exam - Neck Exam Neck Exam: Normal Inspection - Respiratory Exam Respiratory Exam: NORMAL BREATHING PATTERN - Cardiovascular Exam Cardiovascular Exam: REGULAR RHYTHM - GI/Abdominal Exam GI & Abdominal Exam: Soft, Normal Bowel Sounds - Extremities Exam Additional comments: Superficial abrasion L shoulder - Back Exam Back Exam: NORMAL INSPECTION - Neurological Exam Neurological Exam: Alert, Awake Additional comments: Forgetful, cranial nerves and motor no gross deficit gait. steady with PT. - Psychiatric Exam Additional comments: Forgetful - Skin Skin Exam: Warm Assessment and Plan (1) Head injury Status: Acute (2) Abrasions of multiple sites Status: Acute (3) Hx of fall Status: Acute (4) Syncope Status: Acute (5) Dementia Status: Chronic (6) Abnormal EKG Status: Acute - Assessment and Plan (Free Text) Plan: Social service working for NH placement in [facility].
--- NOTE | 2017-10-21 21:45 | PN ---
DATE: 10/21/2017 SUBJECTIVE: The patient denies any dizziness, headache, or palpitation. PHYSICAL EXAMINATION: VITAL SIGNS: Blood pressure 121/69, heart rate 78, temperature 98.8, and respirations 20. HEENT: Bruises involving the right frontal region above the left eye. NECK: No JVD. CHEST: Clear. HEART: S1, S2 regular. EXTREMITIES: Dressings applied to the right knee. LABORATORY STUDIES: Today's blood sugars are 98 and 158. Carotid Doppler: Right internal carotid artery decreased stenosis, less than 50%, and left internal carotid artery decreased stenosis, less than 50%. I did review Neurology evaluation and assessment was [id number]-[id number] dementia with a forehead injury and the plan is to obtain B12, thyroid panel, and start Aricept. ASSESSMENT: 1. Status post fall, questionable syncopal episode. 2. Chronic iron insufficiency. 3. Mild aortic insufficiency. 4. Mild water insufficiency. 5. Mild dementia. RECOMMENDATIONS: Continue current aspirin 81 mg once a day, Tylenol 650 mg every 6 hours. I am in the process of trying to reach a family member and the case will be discussed with the [facility] as well as Dr. Howard, the primary physician, on Mr. Ye. Reg Stanley MD
[2017-10-22 05:44] LABS: BASO # 0.1 K/uL (0.0-0.2); BASO % 0.6 % (0.0-2.0); EOS # 0.1 K/uL (0.0-0.7); EOS % 0.7 % (0.0-4.0); HEMOGLOBIN 11.7 g/dL (12.0-18.0); LYMPH # 1.8 K/uL (1.0-4.3); LYMPH % 20.9 % (20.0-40.0); MEAN CELL VOLUME 91.4 fl (80.0-94.0); MEAN CORPUSCULAR HEMOGLOBIN 30.9 pg (27.0-31.0); MEAN CORPUSCULAR HGB CONC 33.9 g/dL (33.0-37.0); MEAN PLATELET VOLUME 8.9 fl (7.2-11.7); MONO # 0.8 K/uL (0.0-0.8); MONO % 9.7 % (0.0-10.0); NEUT # 5.8 K/uL (1.8-7.0); NEUT % 68.1 % (50.0-75.0); RBC 3.78 Mil/uL (4.40-5.90); RED CELL DISTRIBUTION WIDTH 14.6 % (11.5-14.5); WHITE BLOOD COUNT 8.5 K/uL (4.8-10.8)
[2017-10-22 06:17] LABS: ALB/GLOB RATIO 1.4 (1.0-2.1); CALCIUM 9.4 mg/dL (8.4-10.2)
[2017-10-22 06:31] LABS: T4 7.69 ug/dl (5.5-11.0)
[2017-10-22 07:01] LABS: IRON 101 ug/dL (49-181)
[2017-10-22 07:10] LABS: % IRON SATURATION 68 % (20-55); TOTAL IRON BINDING CAPACITY 149 ug/dL (250-450)
[2017-10-22] MEDS: Bacitracin OINT 15GM TOP SCH ×2 (08:46→16:34)
[2017-10-22 09:10] LABS: FERRITIN 69.5 ng/Ml (17.9-464)
--- NOTE | 2017-10-22 13:28 | PQF ---
PROVIDER RESPONSE TEXT: CKD stage 3 REVIEWER QUERY TEXT: Kidney Disease, Chronic CKD Stage Chronic Renal Insufficiency is documented in the Medical Record. Please specify the disease stage (i ncludes probable or suspected) Such as: -- Chronic kidney disease Stage 1 -- Chronic kidney disease Stage 2 -- Chronic kidney disease Stage 3 -- Chronic kidney disease Stage 4 -- Chronic kidney disease Stage 5 -- Chronic kidney disease Stage 5, requiring dialysis -- End Stage Renal Disease -- Other, please specify Stages are defined by the [employer] as follows: CKD Stage I GFR >= 90 ml / min per 1.73 m2 and persistent albuminuria CKD Stage 2 GFR between 60 and 89 with persistent albuminuria CKD Stage 3 GFR between 30 and 59 CKD Stage 4 GFR between 15 and 29 CKD Stage 5 GFR between <15 or End Stage Renal Disease The patient's Clinical Indicators include: Cardiology consult: Chronic Renal Insufficiency. BUN 35. 30. 35 Creatinine 2.0, 1.8, 1.7 GFR 32, 36, 39 Query created by: Cheyenne Bernal on 10/22/2017 10:50 AM Electronically signed by: Alhaji Howard MD 10/22/2017 1:25 PM
--- NOTE | 2017-10-22 15:30 | CP.PCM.PN ---
Subjective - Date & Time of Evaluation Date of Evaluation: 10/22/17 Time of Evaluation: 11:40 - Subjective Subjective: F/U Syncope. Pt confused. Objective - Vital Signs/Intake and Output Vital Signs (last 24 hours): Temp Pulse Resp BP Pulse Ox 98.0 F 69 20 103/66 98 10/22/17 12:02 10/22/17 12:02 10/22/17 12:02 10/22/17 12:02 10/22/17 12:02 - Medications Medications: Current Medications Acetaminophen (Tylenol 325mg Tab) 650 mg PO Q6 PRN PRN Reason: Headache Last Admin: 10/22/17 08:47 Dose: 650 mg Aspirin (Aspirin Chewable) 81 mg PO DAILY [facility] Last Admin: 10/22/17 08:46 Dose: 81 mg Bacitracin (Bacitracin Oint) 1 applic TOP BID [facility] Last Admin: 10/22/17 08:46 Dose: 1 applic Memantine (Namenda) 5 mg PO DAILY [facility] - Labs Labs: 10/22/17 04:40 10/22/17 04:40 PT 11.7 Seconds (9.8-13.1) 10/19/17 05:55 INR 1.1 10/19/17 05:55 APTT 32.1 Seconds (25.6-37.1) 10/19/17 05:55 - Constitutional Appears: No Acute Distress - Head Exam Additional comments: Superficial abrasion to left side of forehead - Eye Exam Eye Exam: PERRL - ENT Exam ENT Exam: Normal Exam - Neck Exam Neck Exam: Normal Inspection - Respiratory Exam Respiratory Exam: NORMAL BREATHING PATTERN - Cardiovascular Exam Cardiovascular Exam: REGULAR RHYTHM - GI/Abdominal Exam GI & Abdominal Exam: Soft, Normal Bowel Sounds - Extremities Exam Additional comments: Superficial abrasion L shoulder - Back Exam Back Exam: NORMAL INSPECTION - Neurological Exam Neurological Exam: Alert, Awake Additional comments: Forgetful, cranial nerves and motor no gross deficit, gait steady with PT - Psychiatric Exam Additional comments: Forgetful - Skin Skin Exam: Warm Assessment and Plan (1) Head injury Status: Acute (2) Abrasions of multiple sites Status: Acute (3) Hx of fall Status: Acute (4) Syncope Status: Acute (5) Dementia Status: Chronic (6) Abnormal EKG Status: Acute - Assessment and Plan (Free Text) Plan: Social service working for placement in the assisted. continue current Tx.
--- NOTE | 2017-10-22 17:48 | PN ---
DATE: 10/22/2017 SUBJECTIVE: The patient denies any chest pain or shortness of breath. He is complaining of left shoulder pain. PHYSICAL EXAMINATION VITAL SIGNS: Blood pressure 103/66, heart rate 69, temperature 98, respirations 20. HEENT: Normocephalic. CHEST: Clear. HEART: S1 and S2 regular. EXTREMITIES: No edema. LABORATORY DATA: Today's hemoglobin and hematocrit 11.7 and 34.6. White count and platelet count are within normal limit. Today's BUN and creatinine are 35 and 1.7 respectively. The rest of the SMA-7 is within normal limit. I reviewed the left shoulder x-ray performed on admission revealed no acute fracture or dislocation. Old healed fracture left humerus head. Tendinopathy related soft tissue. Calcifications are seen superiorly. Echocardiographic study revealed mild aortic insufficiency. [id number] transfusion. Normal ejection fraction with diastolic dysfunction. ASSESSMENT: 1. Status post fall. 2. Diastolic heart failure. 3. Chronic venous insufficiency. 4. Mild anemia. 5. Mild mitral and mild aortic insufficiency. RECOMMENDATIONS: Continue Aricept 2 mg once a day, aspirin 81 mg once a day. No further cardiac workup is indicated at this time. Reg Stanley MD
[2017-10-23 08:28] VITALS: RESP 20
[2017-10-23] MEDS: Bacitracin OINT 15GM TOP SCH (09:59)
[2017-10-23 12:12] VITALS: BP 105/70; PULSE 73; TEMP 98.8; O2SAT 98
--- NOTE | 2017-10-23 16:29 | CP.PCM.DIS ---
Provider - Provider Date of Admission: 10/20/17 12:25 Attending physician: Alhaji Howard MD Diagnosis - Discharge Diagnosis (1) Head injury Status: Acute Priority: High (2) Abrasions of multiple sites Status: Acute Priority: High (3) Hx of fall Status: Acute Priority: High (4) Syncope Status: Acute (5) Dementia Status: Chronic (6) Abnormal EKG Status: Acute Hospital Course - Lab Results Lab Results: Most Recent Lab Values WBC 8.5 K/uL (4.8-10.8) 10/22/17 04:40 RBC 3.78 Mil/uL (4.40-5.90) L 10/22/17 04:40 Hgb 11.7 g/dL (12.0-18.0) L 10/22/17 04:40 Hct 34.6 % (35.0-51.0) L 10/22/17 04:40 MCV 91.4 fl (80.0-94.0) 10/22/17 04:40 MCH 30.9 pg (27.0-31.0) 10/22/17 04:40 MCHC 33.9 g/dL (33.0-37.0) 10/22/17 04:40 RDW 14.6 % (11.5-14.5) H 10/22/17 04:40 Plt Count 232 K/uL (130-400) 10/22/17 04:40 MPV 8.9 fl (7.2-11.7) 10/22/17 04:40 Neut % (Auto) 68.1 % (50.0-75.0) 10/22/17 04:40 Lymph % (Auto) 20.9 % (20.0-40.0) 10/22/17 04:40 Millard % (Auto) 9.7 % (0.0-10.0) 10/22/17 04:40 Eos % (Auto) 0.7 % (0.0-4.0) 10/22/17 04:40 Baso % (Auto) 0.6 % (0.0-2.0) 10/22/17 04:40 Neut # (Auto) 5.8 K/uL (1.8-7.0) 10/22/17 04:40 Lymph # (Auto) 1.8 K/uL (1.0-4.3) 10/22/17 04:40 Millard # (Auto) 0.8 K/uL (0.0-0.8) 10/22/17 04:40 Eos # (Auto) 0.1 K/uL (0.0-0.7) 10/22/17 04:40 Baso # (Auto) 0.1 K/uL (0.0-0.2) 10/22/17 04:40 Neutrophils % (Manual) 90 % (42-75) H 10/19/17 05:55 Lymphocytes % (Manual) 6 % (20-50) L 10/19/17 05:55 Monocytes % (Manual) 3 % (0-10) 10/19/17 05:55 Basophils % (Manual) 1 % (0-2) 10/19/17 05:55 Platelet Estimate Normal (NORMAL) 10/19/17 05:55 Hypochromasia (manual) Slight 10/19/17 05:55 Ovalocytes Slight 10/19/17 05:55 Schistocytes Slight 10/19/17 05:55 Retic Count 1.1 % (0.5-1.5) 10/22/17 04:40 PT 11.7 Seconds (9.8-13.1) 10/19/17 05:55 INR 1.1 10/19/17 05:55 APTT 32.1 Seconds (25.6-37.1) 10/19/17 05:55 Sodium 139 mmol/l (132-148) 10/22/17 04:40 Potassium 4.4 MMOL/L (3.6-5.0) 10/22/17 04:40 Chloride 106 mmol/L (98-107) 10/22/17 04:40 Carbon Dioxide 26 mmol/L (22-30) 10/22/17 04:40 Anion Gap 11 (10-20) 10/22/17 04:40 BUN 35 mg/dl (9-20) H 10/22/17 04:40 Creatinine 1.7 mg/dl (0.8-1.5) H 10/22/17 04:40 Est GFR ( Amer) 47 10/22/17 04:40 Est GFR (Non-Af Amer) 39 10/22/17 04:40 POC Glucose (mg/dL) 112 mg/dL (65-110) H 10/23/17 11:00 Random Glucose 97 mg/dL (75-110) 10/22/17 04:40 Hemoglobin A1c 5.6 % (4.2-6.5) 10/20/17 04:20 Calcium 9.4 mg/dL (8.4-10.2) 10/22/17 04:40 Phosphorus 3.9 mg/dl (2.5-4.5) 10/20/17 04:20 Magnesium 2.0 MG/DL (1.6-2.3) 10/20/17 04:20 Iron 101 ug/dL (49-181) 10/22/17 06:33 TIBC 149 ug/dL (250-450) L 10/22/17 06:33 % Saturation 68 % (20-55) H 10/22/17 06:33 Ferritin 69.5 ng/Ml (17.9-464) 10/22/17 04:40 Total Bilirubin 0.4 mg/dl (0.2-1.3) 10/22/17 04:40 AST 25 U/L (17-59) 10/22/17 04:40 ALT 16 U/L (21-72) L 10/22/17 04:40 Alkaline Phosphatase 33 U/L (38-126) L 10/22/17 04:40 Troponin I 0.0140 ng/mL (0.00-0.120) 10/19/17 05:55 Total Protein 6.8 G/DL (6.3-8.2) 10/22/17 04:40 Albumin 4.0 g/dL (3.5-5.0) 10/22/17 04:40 Globulin 2.8 gm/dL (2.2-3.9) 10/22/17 04:40 Albumin/Globulin Ratio 1.4 (1.0-2.1) 10/22/17 04:40 Triglycerides 74 mg/DL (0-149) 10/22/17 04:40 Cholesterol 191 mg/dL (0-199) 10/22/17 04:40 LDL Cholesterol Direct 100 mg/dL (0-129) 10/22/17 04:40 HDL Cholesterol 57 MG/DL (30-70) 10/22/17 04:40 Vitamin B12 246 pg/mL (239-931) 10/22/17 04:40 25-OH Vitamin D Total 42.6 NG/ML (30.0-100.0) 10/22/17 04:40 Thyroxine (T4) 7.69 ug/dl (5.5-11.0) 10/22/17 04:40 TSH 3rd Generation 0.62 mIU/ML (0.46-4.68) 10/22/17 04:40 Urine Color Yellow (YELLOW) 10/19/17 08:19 Urine Clarity Clear (Clear) 10/19/17 08:19 Urine pH 5.0 (5.0-8.0) 10/19/17 08:19 Ur Specific Ethel 1.013 (1.003-1.030) 10/19/17 08:19 Urine Protein Negative mg/dL (NEGATIVE) 10/19/17 08:19 Urine Glucose (UA) Neg mg/dL (Normal) 10/19/17 08:19 Urine Ketones Trace mg/dL (NEGATIVE) 10/19/17 08:19 Urine Blood Negative (NEGATIVE) 10/19/17 08:19 Urine Nitrate Negative (NEGATIVE) 10/19/17 08:19 Urine Bilirubin Negative (NEGATIVE) 10/19/17 08:19 Urine Urobilinogen 0.2-1.0 mg/dL (0.2-1.0) 10/19/17 08:19 Ur Leukocyte Esterase Neg Luz/uL (Negative) 10/19/17 08:19 Urine RBC (Auto) 4 /hpf (0-3) H 10/19/17 08:19 Urine Microscopic WBC 1 /hpf (0-5) 10/19/17 08:19 Blood Type B NEGATIVE 10/19/17 05:55 Blood Type Confirm B NEGATIVE 10/19/17 14:46 Antibody Screen Negative 10/19/17 05:55 BBK History Checked No verified bt 10/19/17 05:55 Discharge Exam - Head Exam Head Exam: NORMOCEPHALIC. absent: ATRAUMATIC (superficial abrasions to left side forehead and left side zygomatic arch but without tenderness to face) Discharge Plan - Follow Up Plan Condition: FAIR Disposition: REHAB FACILITY/REHAB UNIT Referrals: Alhaji Howard MD [Staff Provider] -
--- NOTE | 2017-10-23 18:28 | PN ---
DATE: 10/23/2017 SUBJECTIVE: The patient denies any dizziness, headache, or palpitation. He denies any chest pain. PHYSICAL EXAMINATION: VITAL SIGNS: Blood pressure 106/70, heart rate 76, temperature 98.2, and respirations 20. HEENT: Left frontal ecchymosis. NECK: No JVD. CHEST: Clear. HEART: S1 and S2 are regular. EXTREMITIES: Significant muscle wasting. LABORATORY DATA: Today's blood sugars are 101 and 112 respectively. ASSESSMENT: 1. Status post fall and possible syncopal episode. 2. Chronic renal insufficiency. 3. Diastolic heart failure. 4. Early dementia. 5. Mild anemia. 6. Mild mitral and mild aortic insufficiency. RECOMMENDATIONS: Continue aspirin 81 mg once a day, Namenda 5 mg once a day, and bacitracin ointment to the ecchymotic areas one application twice a day. In my opinion, the patient will need a permanent placement as it is not safe for him to live by himself. No further cardiac workup is indicated at this time. Reg Stanley MD
== END 2017-10-23 15:00 | DRG 605 ==
LOC: H.ER 04:18 → H.ERHOLD 06:33 → H.TEL 08:40 → OBSVTOIN 10-20 12:25
PROVIDERS: ADMIT Internal Medicine Pulmonary Disease; ATTEND Internal Medicine Pulmonary Disease
DX: S00.83XA Contusion of other part of head, initial encounter (principal); I50.30 Unspecified diastolic (congestive) heart failure; S00.81XA Abrasion of other part of head, initial encounter; I44.4 Left anterior fascicular block; I34.0 Nonrheumatic mitral (valve) insufficiency; I35.1 Nonrheumatic aortic (valve) insufficiency; F01.50 Vascular dementia, unspecified severity, without behavioral disturbance, psychotic disturbance, mood disturbance, and anxiety; N18.3 Chronic kidney disease, stage 3 (moderate); Z91.83 Wandering in diseases classified elsewhere; R48.2 Apraxia; S80.211A Abrasion, right knee, initial encounter; S40.212A Abrasion of left shoulder, initial encounter; W10.8XXA Fall (on) (from) other stairs and steps, initial encounter; Y92.009 Unspecified place in unspecified non-institutional (private) residence as the place of occurrence of the external cause; I87.2 Venous insufficiency (chronic) (peripheral); D64.9 Anemia, unspecified; S80.01XA Contusion of right knee, initial encounter; S40.012A Contusion of left shoulder, initial encounter; R55 Syncope and collapse

== ENCOUNTER 2017-11-11 12:30 | Observation (INO) | payer MEDICARE ==
[2017-11-11 12:30] VITALS: BMI 18.8
--- NOTE | 2017-11-11 12:51 | ED PDOC ---
HPI:STROKE - Time Time: 12:47 (Limited H and P due to pt. condition) - Historian Historian: Family, EMS - Chief Complaint Chief Complaint: Confusion - Onset Date: 11/10/17 Time: 15:00 - Timing Timing: Currently Symptomatic - TPA Positive for Contraindication: Yes Reason tPA is not being Administered: out of window - Notes: Notes:: Pt. was last seen well at 1500 yesterday. Today found confused and moving all extremities on his own. Not recognizing family. Family does not know any history or details of pt. They found tramadol pills spilled around. Pt. responds to some questions and follows some commands. Denies any pain. Does not state who he is or who the family members are. NIHSS Stroke Scale - Date/Time Evaluation Performed Date Performed: 11/11/17 Time Performed: 12:52 When Was NIHSS Performed: Baseline - How Severe is the Stroke Level of Consciousness: 0=Alert LOC to Questions: 2=Neither correct LOC to commands: 0=Obeys both correctly Best Gaze: 0=Normal Visual: 0=No visual loss Facial: 0=Normal Motor Arm - Left: 0=No drift Motor Arm - Right: 0=No drift Motor Leg - Left: 0=No drift Motor Leg - Right: 0=No drift Limb Ataxia: 0=Absent Sensory: 0=Normal Best Language: 1=Mild to moderate aphasia Dysarthia: 1=Mild to moderate slurring Extinction & Inattention (Neglect): 0=Normal, no object Score: 4 rTPA Inclusion/Exclusion - Refusal of Treatment Patient Refused Treatment: No - Inclusion Criteria for Altepase Patient is 18 years or Older: Yes The Clinical Diagnosis of Ischemic Stroke That is Causing a Potentially Disabling Neurological Deficit: No Time of Onset is Well Established to be Less Than 270 Minute Before Treatment Would Begin: No Risk/Benefit Discussed With Patient/Family Member Present: No Past Medical History Reviewed: Nursing Documentation, Vital Signs Vital Signs: Last Vital Signs Temp 97.0 F L 11/11/17 12:36 Pulse 98 H 11/11/17 12:36 Resp 18 11/11/17 12:36 BP 142/84 11/11/17 12:36 Pulse Ox 98 11/11/17 12:36 - Medical History PMH: Fractures (Inferior L humeral head ( healed)) Denies: HIV, Chronic Kidney Disease - Family History Family History: States: Unknown Family Hx - Home Medications Home Medications: Ambulatory Orders Medication Instructions Recorded Aspirin 325 mg PO DAILY 11/11/17 Calcitriol [Rocaltrol] 0.25 mg PO DAILY 11/11/17 Clonazepam [Klonopin] 0.5 mg PO Q12 PRN 11/11/17 Meclizine [Meclizine*] 25 mg PO Q8 PRN 11/11/17 Montelukast [Singulair] 10 mg PO DAILY 11/11/17 Ramipril [Altace] 5 mg PO DAILY 11/11/17 Tamsulosin [Flomax] 0.4 mg PO QPM 11/11/17 Zolpidem [Ambien] 5 mg PO HS 11/11/17 amLODIPine [Norvasc] 2.5 mg PO DAILY 11/11/17 traMADol [Ultram] 50 mg PO Q8 PRN 11/11/17 - Allergies Allergies/Adverse Reactions: Allergies Allergy/AdvReac Type Severity Reaction Status Date / Time No Known Allergies Allergy Verified 10/19/17 04:22 Review of Systems Review Of Systems: ROS cannot be obtained secondary to pt's inabilty to answer questions. Physical Exam - Reviewed Nursing Documentation Reviewed: Yes Vital Signs Reviewed: Yes - Physical Exam Appears: Positive for: Non-toxic, No Acute Distress Head Exam: Positive for: ATRAUMATIC, NORMAL INSPECTION, NORMOCEPHALIC Skin: Positive for: Normal Color, Warm, DRY Eye Exam: Positive for: Normal appearance (1+ b/l), EOMI, PERRL ENT: Positive for: Normal ENT Inspection. Negative for: Nasal Congestion, Pharyngeal Erythema Neck: Positive for: Normal, Painless ROM, Supple Cardiovascular/Chest: Positive for: Regular Rate, Rhythm Respiratory: Positive for: CNT, Normal Breath Sounds Gastrointestinal/Abdominal: Positive for: Normal Exam, Soft. Negative for: Tenderness Back: Positive for: Normal Inspection. Negative for: L CVA Tenderness, R CVA Tenderness Extremity: Positive for: Normal ROM. Negative for: Tenderness, Pedal Edema Neurologic/Psych: Positive for: Alert, nitroglycerin neutralizer II-XII, Other (follows some commands and responses to some questions; other commands and questions pt. not responsive and making movements on his own.). Negative for: Oriented, Motor/Sensory Deficits, Facial Droop - Laboratory Results Result Diagrams: 11/11/17 12:50 11/11/17 12:50 Interpretation Of Abn Labs: bun and cr similar to old - ECG ECG: Positive for: Interpreted By Me, Viewed By Me ECG Rhythm: Positive for: Normal QRS, Sinus Rhythm Interpretation Of Abn EKG: similar to old O2 Sat by Pulse Oximetry: 98 Pulse Ox Interpretation: Normal - Radiology X-Ray: Interpreted by Me, Viewed By Me X-Ray Interpretation: No Acute Disease (similar to old) - Progress ED Course And Treament: 1257: Per notes, pt. with dementia. Spoke with Dr. Anthony. Does not meet criteria for thrombolytics. Get work up. 1442: Nurse spoke with poison control. Symptomatic tx. Repeat liver enzymes and get cpk. Will admit for worsening altered mental status, possibly from dementia. 1500: Spoke with Dr. Howard. Will admit tele obs for further eval. Pt. stable. Alert. Disposition - Clinical Impression Clinical Impression: Altered mental status - Patient ED Disposition Is Patient to be Admitted: Yes Counseled Patient/Family Regarding: Studies Performed, Diagnosis - Disposition Disposition Time: 15:03 Condition: FAIR - Pt Status Changed To: Hospital Disposition Of: Observation - POA Present On Arrival: None
--- NOTE | 2017-11-11 12:59 | CT ---
Date of service: 11/11/2017 PROCEDURE: CT HEAD WITHOUT CONTRAST. HISTORY: code stroke COMPARISON: 10/19/2017 TECHNIQUE: Axial computed tomography images were obtained through the head/brain without intravenous contrast. Radiation dose: Total exam DLP = mGy-cm. This CT exam was performed using one or more of the following dose reduction techniques: Automated exposure control, adjustment of the mA and/or kV according to patient size, and/or use of iterative reconstruction technique. FINDINGS: HEMORRHAGE: No intracranial hemorrhage. BRAIN: No mass effect or edema. Mild cerebral atrophy as before. No interval significant appearing microvascular ischemic changes. The greater asymmetry of the posterior right high parietal CSF space and sulcal prominence here is a stable finding in this patient VENTRICLES: Unremarkable. No hydrocephalus. CALVARIUM: Unremarkable. PARANASAL SINUSES: Unremarkable as visualized. No significant inflammatory changes. MASTOID AIR CELLS: Unremarkable as visualized. No inflammatory changes. OTHER FINDINGS: None. IMPRESSION: No intracranial hemorrhage or mass effect. Stable findings as above.
[2017-11-11] MEDS ORDERED: Naloxone 0.4 mg/ml Inj (Adult) IVP STA (13:05)
[2017-11-11 13:08] LABS: INR 1.1; PROTHROMBIN TIME 12.5 Seconds (9.8-13.1)
[2017-11-11 13:11] LABS: PARTIAL THROMBOPLASTIN TIME 29.8 Seconds (25.6-37.1)
[2017-11-11 13:12] LABS: BASO # 0.1 K/uL (0.0-0.2); BASO % 0.5 % (0.0-2.0); EOS % 0.3 % (0.0-4.0); HEMOGLOBIN 10.9 g/dL (12.0-18.0); LYMPH # 1.6 K/uL (1.0-4.3); LYMPH % 15.4 % (20.0-40.0); MEAN CELL VOLUME 92.6 fl (80.0-94.0); MEAN CORPUSCULAR HEMOGLOBIN 30.8 pg (27.0-31.0); MEAN CORPUSCULAR HGB CONC 33.2 g/dL (33.0-37.0); MEAN PLATELET VOLUME 8.2 fl (7.2-11.7); MONO % 9.1 % (0.0-10.0); NEUT # 7.8 K/uL (1.8-7.0); NEUT % 74.7 % (50.0-75.0); RBC 3.54 Mil/uL (4.40-5.90); RED CELL DISTRIBUTION WIDTH 14.1 % (11.5-14.5); WHITE BLOOD COUNT 10.5 K/uL (4.8-10.8)
[2017-11-11] MEDS: Sodium Chloride 0.9% 1,000 ML IV SCH ×2 (13:14→22:30)
[2017-11-11 13:30] LABS: ALB/GLOB RATIO 1.2 (1.0-2.1); ALBUMIN 4.2 g/dL (3.5-5.0); CALCIUM 9.8 mg/dL (8.4-10.2)
[2017-11-11 13:35] LABS: TROPONIN I 0.015 ng/mL (0.00-0.120)
[2017-11-11 14:27] LABS: ACETAMINOPHEN < 10.0 ug/ml (10.0-30.0); SALICYLATE < 1.0 mg/dl
--- NOTE | 2017-11-11 15:56 | CARD ---
APPROVED REPORT Date of service: 11/11/2017 EKG Measurement Heart [id number] <Conclusion> Normal sinus rhythm Left axis deviation Left ventricular hypertrophy with QRS widening Abnormal ECG
--- NOTE | 2017-11-11 16:03 | RAD ---
Date of service: 11/11/2017 HISTORY: Code Stroke COMPARISON: 10/19/2017 FINDINGS: LUNGS: The patchy bilateral and diffuse prominent interstitial lung markings are similar. Vague increased low-density opacity possibly airspace projects over the right mid to upper lung zone-an early low-density infiltrate/nonspecific focal alveolitis here is a consideration. Interval pleural parenchymal pathology seen on end can also simulate this. PLEURA: No pneumothorax. Biapical pleural thickening-similar. Additional findings as noted above CARDIOVASCULAR: Minimal cardiomegaly tortuous thoracic aorta. Probable chronic mild pulmonary venous congestion-no worsening appreciated. OSSEOUS STRUCTURES: Generalized osteopenia, thoracic spondylosis. Cervical apophyseal joint arthrosis, bilateral shoulder arthrosis left greater than right. Left shoulder joint large loose body similar-appearing. High-riding left humeral head chronic rotator cuff pathology inferred VISUALIZED UPPER ABDOMEN: Normal. OTHER FINDINGS: None. IMPRESSION: Addition to the aforementioned chronic findings a possible low-density mid to right upper lung zone focal [id number] infiltrate and/or pleural parenchymal pathology seen on end is a consideration. Follow-up recommended. Other findings as above.
[2017-11-11 17:27] LABS: ALB/GLOB RATIO 1.2 (1.0-2.1); CALCIUM 9.6 mg/dL (8.4-10.2)
[2017-11-11 21:18] LABS: OPIATES, UR NEGATIVE (NEGATIVE); PHENCYCLIDINE, UR NEGATIVE (NEGATIVE)
[2017-11-11 21:25] LABS: BARBITURATES, UR NEGATIVE (NEGATIVE); BENZODIAZEPINES, UR NEGATIVE (NEGATIVE)
[2017-11-12 05:39] LABS: HEMOGLOBIN 10.1 g/dL (12.0-18.0); MEAN CORPUSCULAR HEMOGLOBIN 31.4 pg (27.0-31.0); MEAN CORPUSCULAR HGB CONC 34.2 g/dL (33.0-37.0); RBC 3.22 Mil/uL (4.40-5.90); RED CELL DISTRIBUTION WIDTH 13.9 % (11.5-14.5); WHITE BLOOD COUNT 8.9 K/uL (4.8-10.8)
[2017-11-12 05:58] LABS: ALB/GLOB RATIO 1.2 (1.0-2.1); ALBUMIN 3.6 g/dL (3.5-5.0); CALCIUM 9.4 mg/dL (8.4-10.2)
[2017-11-12 06:00] LABS: T4 7.87 ug/dl (5.5-11.0)
[2017-11-12] MEDS: Sodium Chloride 0.9% 1,000 ML IV SCH ×2 (09:24→21:51)
--- NOTE | 2017-11-12 13:27 | CP.PCM.HP ---
History of Present Illness - History of Present Illness History of Present Illness: 82 y/o M, Hx of Dementia, Pt lives along and had a recent fall with significant Fx of inferior L humeral head. Pt was brought by EMS on 11/11/17 to [facility] for evaluation of AMS associated slurred speech, last time Pt in his b ase line was at 3pm day [employer]. with no improvement. Pt failed RN swallow screen. Code stroke was initiated and Pt was admitted to Telemetry floor for further Tx and closer supervision. Worsening symptoms: Generalized weakness, Pt was found by EMS on bed with multiple pills on floor. Aggravated factor: Movements. Unable to cooperate with HPI 2nd to clinical condition. No: Fever, chills, n/v/d, abdominal pain, urinary symptoms, CP, tachycardia, syncope, SOB, cough. CT Head: No acute abnormalities. Present on Admission - Present on Admission Any Indicators Present on Admission: No Review of Systems - Review of Systems Systems not reviewed;Unavailable: Acuity of Condition, Dementia, Altered Mental Status Past Patient History - Past Medical History & Family History Past Medical History?: Yes Pertinent Family History: Unknown - Past Social History Smoking Status: Former Smoker Alcohol: None Drugs: Denies Home Situation {Lives}: Alone - CARDIAC Hx Cardiac Disorders: Yes (Patient denies) Hx Hypertension: Yes - PULMONARY Hx Respiratory Disorders: Yes Hx Chronic Obstructive Pulmonary Disease (COPD): Yes Other/Comment: patient states having "lung problem" unable to specify what problem is - NEUROLOGICAL Hx Neurological Disorder: No - HEENT Hx HEENT Problems: No - RENAL Hx Chronic Kidney Disease: No - ENDOCRINE/METABOLIC Hx Endocrine Disorders: No - HEMATOLOGICAL/ONCOLOGICAL Hx Blood Disorders: No Hx AIDS: No Hx Human Immunodeficiency Virus (HIV): No - INTEGUMENTARY Hx Dermatological Problems: No - MUSCULOSKELETAL/RHEUMATOLOGICAL Hx Musculoskeletal Disorders: Yes Hx Falls: Yes - GASTROINTESTINAL Hx Gastrointestinal Disorders: No - GENITOURINARY/GYNECOLOGICAL Hx Genitourinary Disorders: Yes Hx Prostate Problems: Yes - PSYCHIATRIC Hx Psychophysiologic Disorder: No Hx Substance Use: No - SURGICAL HISTORY Hx Surgeries: No (unable to obtain) - ANESTHESIA Hx Anesthesia: No Hx Anesthesia Reactions: No Hx Malignant Hyperthermia: No Meds Home Medications: Home Medication List Medication Instructions Recorded Confirmed Type QUEtiapine [Seroquel] 25 mg PO HS tab 11/13/17 Rx Allergies/Adverse Reactions: Allergies Allergy/AdvReac Type Severity Reaction Status Date / Time No Known Allergies Allergy Verified 10/19/17 04:22 Physical Exam - Constitutional Appears: Confused - Head Exam Head Exam: NORMAL INSPECTION - Eye Exam Eye Exam: PERRL - ENT Exam ENT Exam: Normal Exam - Neck Exam Neck exam: Positive for: Normal Inspection - Respiratory Exam Respiratory Exam: Clear to Auscultation Bilateral - Cardiovascular Exam Cardiovascular Exam: REGULAR RHYTHM - GI/Abdominal Exam GI & Abdominal Exam: Normal Bowel Sounds, Soft - Extremities Exam Extremities exam: Positive for: normal inspection - Back Exam Back exam: NORMAL INSPECTION - Neurological Exam Additional comments: Awake, forgetful, confused, follows simple commands, generalized weakness. - Psychiatric Exam Psychiatric exam: Anxious Additional comments: Confused - Skin Skin Exam: Warm Results - Vital Signs Recent Vital Signs: Last Vital Signs Temp 98.2 F 11/12/17 12:59 Pulse 75 11/12/17 12:59 Resp 20 11/12/17 12:59 BP 133/70 11/12/17 12:59 Pulse Ox 98 11/12/17 12:59 reviewed J.PAngel - Labs Result Diagrams: 11/12/17 05:18 11/12/17 05:18 Labs: Laboratory Results - last 24 hr 11/11/17 11/11/17 11/11/17 12:50 13:05 14:07 WBC RBC Hgb Hct MCV MCH MCHC RDW Plt Count Sodium 137 Potassium 4.9 Chloride 107 Carbon Dioxide 19 L Anion Gap 16 BUN 40 H Creatinine 2.2 H Est GFR ( Amer) 35 Est GFR (Non-Af Amer) 29 Random Glucose 100 Calcium 9.8 Total Bilirubin 0.4 AST 56 ALT 94 H D Alkaline Phosphatase 43 Total Creatine Kinase Troponin I 0.0150 Total Protein 7.6 Albumin 4.2 Globulin 3.4 Albumin/Globulin Ratio 1.2 Triglycerides 62 Cholesterol 192 LDL Cholesterol Direct 98 HDL Cholesterol 60 Thyroxine (T4) TSH 3rd Generation Salicylates < 1.0 Urine Opiates Screen Urine Methadone Screen Acetaminophen < 10.0 L Ur Barbiturates Screen Ur Phencyclidine Scrn Ur Amphetamines Screen U Benzodiazepines Scrn U Oth Cocaine Metabols U Cannabinoids Screen Alcohol, Quantitative Blood Type B NEGATIVE Antibody Screen Negative BBK History Checked Patient has bt 11/11/17 11/11/17 11/11/17 14:07 14:51 17:13 WBC RBC Hgb Hct MCV MCH MCHC RDW Plt Count Sodium 138 Potassium 4.4 Chloride 106 Carbon Dioxide 21 L Anion Gap 15 BUN 35 H Creatinine 2.1 H Est GFR ( Amer) 37 Est GFR (Non-Af Amer) 30 Random Glucose 102 Calcium 9.6 Total Bilirubin 0.4 AST 50 ALT 90 H Alkaline Phosphatase 46 Total Creatine Kinase 211 H Troponin I Total Protein 7.2 Albumin 4.0 Globulin 3.2 Albumin/Globulin Ratio 1.2 Triglycerides Cholesterol LDL Cholesterol Direct HDL Cholesterol Thyroxine (T4) TSH 3rd Generation Salicylates Urine Opiates Screen Urine Methadone Screen Acetaminophen Ur Barbiturates Screen Ur Phencyclidine Scrn Ur Amphetamines Screen U Benzodiazepines Scrn U Oth Cocaine Metabols U Cannabinoids Screen Alcohol, Quantitative < 10 Blood Type Antibody Screen BBK History Checked 11/11/17 11/12/17 11/12/17 20:01 05:18 05:18 WBC 8.9 RBC 3.22 L Hgb 10.1 L Hct 29.6 L MCV 92.0 MCH 31.4 H MCHC 34.2 RDW 13.9 Plt Count 218 Sodium 138 Potassium 4.2 Chloride 107 Carbon Dioxide 26 Anion Gap 9 L BUN 29 H Creatinine 1.9 H Est GFR ( Amer) 41 Est GFR (Non-Af Amer) 34 Random Glucose 80 Calcium 9.4 Total Bilirubin 0.5 AST 47 ALT 77 H Alkaline Phosphatase 39 Total Creatine Kinase Troponin I Total Protein 6.6 Albumin 3.6 Globulin 3.0 Albumin/Globulin Ratio 1.2 Triglycerides 67 Cholesterol 176 LDL Cholesterol Direct 94 HDL Cholesterol 50 Thyroxine (T4) 7.87 TSH 3rd Generation 1.30 Salicylates Urine Opiates Screen Negative Urine Methadone Screen Negative Acetaminophen Ur Barbiturates Screen Negative Ur Phencyclidine Scrn Negative Ur Amphetamines Screen Negative U Benzodiazepines Scrn Negative U Oth Cocaine Metabols Negative U Cannabinoids Screen Negative Alcohol, Quantitative Blood Type Antibody Screen BBK History Checked reviewed J.P. - EKG Data EKG comments: reviewed J.P. - Imaging and Cardiology CT scan - head Status: Report reviewed by me (J.P.) Chest x-ray Status: Report reviewed by me (MosheP.) Assessment & Plan (1) Altered mental status Status: Acute Priority: High (2) Dementia Status: Chronic Priority: High (3) Hx of fall Status: Acute Priority: High (4) HTN (hypertension) Status: Chronic Priority: Medium - Assessment and Plan (Free Text) Plan: F/U [facility] MRI, CXR, continue Altace, ASA, Norvasc, Singulair, Sodium Chl, Calcitril, Flomax and rest of Tx. OT/PT eval. Neurology consult. - Date & Time Date: 11/12/17 Time: 10:30
--- NOTE | 2017-11-12 13:59 | RAD ---
Date of service: 11/12/2017 HISTORY: ? pneumonia COMPARISON: 11/11/2017 TECHNIQUE: Chest PA and lateral FINDINGS: LUNGS: No active pulmonary disease. PLEURA: No significant pleural effusion identified. No pneumothorax apparent. CARDIOVASCULAR: Normal. OSSEOUS STRUCTURES: No significant abnormalities. VISUALIZED UPPER ABDOMEN: Normal. OTHER FINDINGS: None. IMPRESSION: No active disease.
--- NOTE | 2017-11-12 14:17 | MRI ---
Date of service: 11/12/2017 PROCEDURE: MRI BRAIN WITHOUT CONTRAST HISTORY: ams COMPARISON: Noncontrast head CT 11/11/2017 and brain MRI 10/19/2017. TECHNIQUE: Multiplanar, multisequence MR images of the brain were obtained without intravenous contrast enhancement. FINDINGS: HEMORRHAGE: No definite acute or subacute intracranial hemorrhage is identified. 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 No significant mass effect appears exerted by these hygromata. DWI: No evidence of an acute or early subacute infarction. BRAIN PARENCHYMA: A right parietal vertex arachnoid cyst is stable measuring 2.4 x 2.9 x 3.4 cm (transverse by anteroposterior by superoinferior dimensions). Mild diffuse cerebral atrophy and chronic microangiopathy are reiterated. Posterior fossa contents appear stable. VENTRICLES: Unremarkable. No hydrocephalus. CRANIUM: Unremarkable. ORBITS: Grossly unremarkable. PARANASAL SINUSES/MASTOIDS: Clear VASCULAR SYSTEM: Skull base flow voids intact. OTHER FINDINGS: None. 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 Limited age-related neuro degenerative findings are reiterated as well with no definite acute findings by standard MR techniques.
--- NOTE | 2017-11-12 21:59 | CP.PCM.CON ---
History of Present Illness - History of Present Illness History of Present Illness: NEurology consult dictated. on exam today, patients speech is slightly dysarthric and he is anomic. MRI brain is normal A/p: patient with severe dementia who is dysarthric most likely secondary to dementia process. plan: 1. placement 2. contineu aricept 3. would discontinue ambien and tramadol [facility] Past Patient History - Past Medical History & Family History Past Medical History?: Yes - Past Social History Smoking Status: Former Smoker - CARDIAC Hx Cardiac Disorders: Yes (Patient denies) Hx Hypertension: Yes - PULMONARY Hx Respiratory Disorders: Yes Hx Chronic Obstructive Pulmonary Disease (COPD): Yes Other/Comment: patient states having "lung problem" unable to specify what problem is - NEUROLOGICAL Hx Neurological Disorder: No - HEENT Hx HEENT Problems: No - RENAL Hx Chronic Kidney Disease: No - ENDOCRINE/METABOLIC Hx Endocrine Disorders: No - HEMATOLOGICAL/ONCOLOGICAL Hx Blood Disorders: No Hx AIDS: No Hx Human Immunodeficiency Virus (HIV): No - INTEGUMENTARY Hx Dermatological Problems: No - MUSCULOSKELETAL/RHEUMATOLOGICAL Hx Musculoskeletal Disorders: Yes Hx Falls: Yes - GASTROINTESTINAL Hx Gastrointestinal Disorders: No - GENITOURINARY/GYNECOLOGICAL Hx Genitourinary Disorders: Yes Hx Prostate Problems: Yes - PSYCHIATRIC Hx Psychophysiologic Disorder: No Hx Substance Use: No - SURGICAL HISTORY Hx Surgeries: No (unable to obtain) - ANESTHESIA Hx Anesthesia: No Hx Anesthesia Reactions: No Hx Malignant Hyperthermia: No Meds Allergies/Adverse Reactions: Allergies Allergy/AdvReac Type Severity Reaction Status Date / Time No Known Allergies Allergy Verified 10/19/17 04:22 - Medications Medications: Current Medications Amlodipine Besylate (Norvasc) 2.5 mg PO DAILY [facility] Last Admin: 11/12/17 09:24 Dose: 2.5 mg Aspirin (Aspirin) 325 mg PO DAILY [facility] Last Admin: 11/12/17 11:45 Dose: 325 mg Calcitriol (Rocaltrol) 0.25 mcg PO DAILY [facility] Last Admin: 11/12/17 09:23 Dose: 0.25 mcg Sodium Chloride (Sodium Chloride 0.9%) 1,000 mls @ 100 mls/hr IV .Q10H [facility] Last Admin: 11/12/17 21:51 Dose: 100 mls/hr Montelukast Sodium (Singulair) 10 mg PO DAILY [facility] Last Admin: 11/12/17 09:23 Dose: 10 mg Ramipril (Altace) 5 mg PO DAILY [facility] Last Admin: 11/12/17 09:23 Dose: 5 mg Tamsulosin HCl (Flomax) 0.4 mg PO QPM [facility] Last Admin: 11/12/17 21:51 Dose: 0.4 mg Zolpidem Tartrate (Ambien) 5 mg PO HS [facility] Last Admin: 11/12/17 21:51 Dose: 5 mg Results - Vital Signs Recent Vital Signs: Last Vital Signs Temp 98.0 F 11/12/17 20:07 Pulse 76 11/12/17 20:07 Resp 18 11/12/17 20:07 BP 116/66 11/12/17 15:58 Pulse Ox 98 11/12/17 20:07 - Labs Result Diagrams: 11/12/17 05:18 11/12/17 05:18 Labs: Laboratory Results - last 24 hr 11/12/17 11/12/17 05:18 05:18 WBC 8.9 RBC 3.22 L Hgb 10.1 L Hct 29.6 L MCV 92.0 MCH 31.4 H MCHC 34.2 RDW 13.9 Plt Count 218 Sodium 138 Potassium 4.2 Chloride 107 Carbon Dioxide 26 Anion Gap 9 L BUN 29 H Creatinine 1.9 H Est GFR ( Amer) 41 Est GFR (Non-Af Amer) 34 Random Glucose 80 Calcium 9.4 Total Bilirubin 0.5 AST 47 ALT 77 H Alkaline Phosphatase 39 Total Protein 6.6 Albumin 3.6 Globulin 3.0 Albumin/Globulin Ratio 1.2 Triglycerides 67 Cholesterol 176 LDL Cholesterol Direct 94 HDL Cholesterol 50 Thyroxine (T4) 7.87 TSH 3rd Generation 1.30
[2017-11-13] MEDS: Sodium Chloride 0.9% 1,000 ML IV SCH (06:00)
--- NOTE | 2017-11-13 08:33 | PN ---
DATE: 11/12/2017 CONSULTING PHYSICIAN: . HISTORY: The patient is an 81-year-old male who I saw earlier in the month who has a past medical history of dementia, lives on his own. On 11/11/2017, the patient was seen earlier in the day, and he was found confused and on the ground. Apparently, the daughter found him on the ground without urine incontinence or tongue bite. They found tramadol pills was all around and in the emergency room he is responding to some questions and following some commands. He was able to walk move all extremities and was not aphasic. At this point, he was not felt to be a TPA candidate although NIH stroke scale was performed, NIH stroke scale was approximately 3. He could name and repeat, he could follow commands and his CAT scan of the head was nonsignificant for stroke or hemorrhage. The patient was admitted to telemetry floor and this morning on examination the patient was speaking but had some dysarthria, he was naming and repeating. He did, however, display severe dementia. He had some apraxia, constructional and ideomotor. Review of systems was not accurate as the patient was not answering question appropriately. PAST MEDICAL HISTORY: Dementia, previous sacral ulcer. No diabetes. No high blood pressure. PAST SURGICAL HISTORY: Not known. FAMILY HISTORY AND SOCIAL HISTORY: Has several children, lived on his own. Drug and alcohol history is not known. ALLERGIES: NO KNOWN DRUG ALLERGIES. CAT scan of the head was normal, significant for atrophy. MRI of the brain was done and upon my reading does not show any acute stroke or hemorrhage, it does show some white matter disease periventricularly. There are no mass lesions noted. There is significant temporal atrophy as well. LABORATORY DATA: As follows; white count 9.9, hemoglobin 10.1, hematocrit 29.6, platelets 218. Chemistries normal except for BUN, creatinine 29/0.19 trending downwards from 40/2.2, AST, ALT 47 and 77 respectively. Thyroid profile normal as is lipid profile. Toxicology is normal. MEDICATIONS: Amlodipine besylate, aspirin, Calcitrol, Montelukast sodium, , sodium chloride, tamsulosin and zolpidem, which was not given. IMPRESSION: This is an 81-year-old male with moderately severe dementia, it is noted on his medication list that he is on Ambien as well as some blood pressure medication, it is possible that this fall is related to the sleepy medications and antibiotic medications. It is also possible that he might have due his blood pressure causing the fall. At this time, he does not appear to be having a stroke clinically; however, it is not advisable for this patient to be living on his own. Disposition is needed possibly to rehab and or [facility]. PLAN: 1. There is no EEG needed at this time. 2. MRA of the brain final report is needed, however, on my report, there is no stroke noted. 3. Gait training needed. Thank you for consulting Neurology. We will follow. Mariel Anthony MD
--- NOTE | 2017-11-13 12:18 | CP.PCM.PCO ---
Assessment/Plan - Assessment and Plan (Free Text) Assessment: Patient seen and examined this morning Vital signs stable, awake alert confused at times. [place] speaking, able to answer his brothers name, town he lives appropriately. Good po intake MRI reviewed, negative for acute processes. AMS most likely from his dementia as per Neuros evaluation Ambien discontinued and seroquel HS started for mood stabilization. Pt would benefit from [facility], Discussed with brother and sister inlaw at bedside yesterday. Patient medically optimized for DC today to [facility], discussed with Dr Howard.
[2017-11-13 16:15] VITALS: RESP 16
--- NOTE | 2017-11-13 17:05 | CP.PCM.DIS ---
Provider - Provider Date of Admission: 11/11/17 15:01 Attending physician: Alhaji Howard MD Consults: Stroke Team Neurology-Dr. Anthony Time Spent in preparation of Discharge (in minutes): 35 Diagnosis - Discharge Diagnosis (1) Altered mental status Status: Acute Priority: High (2) Dementia Status: Chronic Priority: High (3) Hx of fall Status: Acute Priority: High (4) HTN (hypertension) Status: Chronic Priority: Medium Hospital Course - Lab Results Lab Results: Most Recent Lab Values WBC 8.9 K/uL (4.8-10.8) 11/12/17 05:18 RBC 3.22 Mil/uL (4.40-5.90) L 11/12/17 05:18 Hgb 10.1 g/dL (12.0-18.0) L 11/12/17 05:18 Hct 29.6 % (35.0-51.0) L 11/12/17 05:18 MCV 92.0 fl (80.0-94.0) 11/12/17 05:18 MCH 31.4 pg (27.0-31.0) H 11/12/17 05:18 MCHC 34.2 g/dL (33.0-37.0) 11/12/17 05:18 RDW 13.9 % (11.5-14.5) 11/12/17 05:18 Plt Count 218 K/uL (130-400) 11/12/17 05:18 MPV 8.2 fl (7.2-11.7) 11/11/17 12:50 Neut % (Auto) 74.7 % (50.0-75.0) 11/11/17 12:50 Lymph % (Auto) 15.4 % (20.0-40.0) L 11/11/17 12:50 [place] % (Auto) 9.1 % (0.0-10.0) 11/11/17 12:50 Eos % (Auto) 0.3 % (0.0-4.0) 11/11/17 12:50 Baso % (Auto) 0.5 % (0.0-2.0) 11/11/17 12:50 Neut # (Auto) 7.8 K/uL (1.8-7.0) H 11/11/17 12:50 Lymph # (Auto) 1.6 K/uL (1.0-4.3) 11/11/17 12:50 [place] # (Auto) 1.0 K/uL (0.0-0.8) H 11/11/17 12:50 Eos # (Auto) 0.0 K/uL (0.0-0.7) 11/11/17 12:50 Baso # (Auto) 0.1 K/uL (0.0-0.2) 11/11/17 12:50 PT 12.5 Seconds (9.8-13.1) 11/11/17 12:50 INR 1.1 11/11/17 12:50 APTT 29.8 Seconds (25.6-37.1) 11/11/17 12:50 Sodium 138 mmol/l (132-148) 11/12/17 05:18 Potassium 4.2 MMOL/L (3.6-5.0) 11/12/17 05:18 Chloride 107 mmol/L (98-107) 11/12/17 05:18 Carbon Dioxide 26 mmol/L (22-30) 11/12/17 05:18 Anion Gap 9 (10-20) L 11/12/17 05:18 BUN 29 mg/dl (9-20) H 11/12/17 05:18 Creatinine 1.9 mg/dl (0.8-1.5) H 11/12/17 05:18 Est GFR ( Amer) 41 11/12/17 05:18 Est GFR (Non-Af Amer) 34 11/12/17 05:18 POC Glucose (mg/dL) 97 mg/dL (65-110) 11/11/17 13:06 Random Glucose 80 mg/dL (75-110) 11/12/17 05:18 Hemoglobin A1c 5.8 % (4.2-6.5) 11/11/17 12:15 Calcium 9.4 mg/dL (8.4-10.2) 11/12/17 05:18 Total Bilirubin 0.5 mg/dl (0.2-1.3) 11/12/17 05:18 AST 47 U/L (17-59) 11/12/17 05:18 ALT 77 U/L (21-72) H 11/12/17 05:18 Alkaline Phosphatase 39 U/L (38-126) 11/12/17 05:18 Total Creatine Kinase 211 U/L (55-170) H 11/11/17 14:51 Troponin I 0.0150 ng/mL (0.00-0.120) 11/11/17 12:50 Total Protein 6.6 G/DL (6.3-8.2) 11/12/17 05:18 Albumin 3.6 g/dL (3.5-5.0) 11/12/17 05:18 Globulin 3.0 gm/dL (2.2-3.9) 11/12/17 05:18 Albumin/Globulin Ratio 1.2 (1.0-2.1) 11/12/17 05:18 Triglycerides 67 mg/DL (0-149) 11/12/17 05:18 Cholesterol 176 mg/dL (0-199) 11/12/17 05:18 LDL Cholesterol Direct 94 mg/dL (0-129) 11/12/17 05:18 HDL Cholesterol 50 MG/DL (30-70) 11/12/17 05:18 Thyroxine (T4) 7.87 ug/dl (5.5-11.0) 11/12/17 05:18 TSH 3rd Generation 1.30 mIU/ML (0.46-4.68) 11/12/17 05:18 Salicylates < 1.0 mg/dl 11/11/17 14:07 Urine Opiates Screen Negative (NEGATIVE) 11/11/17 20:01 Urine Methadone Screen Negative (NEGATIVE) 11/11/17 20:01 Acetaminophen < 10.0 ug/ml (10.0-30.0) L 11/11/17 14:07 Ur Barbiturates Screen Negative (NEGATIVE) 11/11/17 20:01 Ur Phencyclidine Scrn Negative (NEGATIVE) 11/11/17 20:01 Ur Amphetamines Screen Negative (NEGATIVE) 11/11/17 20:01 U Benzodiazepines Scrn Negative (NEGATIVE) 11/11/17 20:01 U Oth Cocaine Metabols Negative (NEGATIVE) 11/11/17 20:01 U Cannabinoids Screen Negative (NEGATIVE) 11/11/17 20:01 Alcohol, Quantitative < 10 mg/dl (0-10) 11/11/17 14:07 Blood Type B NEGATIVE 11/11/17 13:05 Antibody Screen Negative 11/11/17 13:05 BBK History Checked Patient has bt 11/11/17 13:05 - Date & Time of H&P Date of H&P: 11/12/17 Time of H&P: 10:30 Discharge Exam - Head Exam Head Exam: NORMAL INSPECTION - Eye Exam Eye Exam: PERRL - ENT Exam ENT Exam: Normal Exam - Neck Exam Neck exam: Normal Inspection - Respiratory Exam Respiratory Exam: NORMAL BREATHING PATTERN - Cardiovascular Exam Cardiovascular Exam: REGULAR RHYTHM - GI/Abdominal Exam GI & Abdominal Exam: Normal Bowel Sounds, Soft - Extremities Exam Extremities exam: normal inspection - Back Exam Back exam: NORMAL INSPECTION - Neurological Exam Additional comments: Awake, forgetful, confused, follows simple commands, generalized weakness. - Psychiatric Exam Psychiatric exam: Anxious Additional comments: Confused - Skin Skin Exam: Warm Discharge Plan - Follow Up Plan Condition: FAIR Disposition: TRANSF TO SNF
[2017-11-13 20:24] VITALS: BP 121/68; PULSE 79; TEMP 97.9; O2SAT 96
== END 2017-11-13 23:45 ==
LOC: H.ER 12:30 → H.ERHOLD 15:01 → H.TEL 20:49 → OBSVTOIN 11-12 12:15 → INTOOBSV 11-12 12:15
PROVIDERS: ADMIT Internal Medicine Pulmonary Disease; ATTEND Internal Medicine Pulmonary Disease
DX: R41.82 Altered mental status, unspecified (principal); F03.90 Unspecified dementia, unspecified severity, without behavioral disturbance, psychotic disturbance, mood disturbance, and anxiety; I10 Essential (primary) hypertension; Z87.891 Personal history of nicotine dependence; R47.1 Dysarthria and anarthria; J44.9 Chronic obstructive pulmonary disease, unspecified
CPT/HCPCS: 36415; 70450; 70551; 71045; 71046; 80053; 80061; 82550; 82948; 83036; 84436; 84443; 84484; 85025; 85027; 85610; 85730; 86850; 86900; 92526; 92610; 93005; 96374; 97162; 99285; G0378; G0480; G8978; G8979; G8996; G8997; J1630; J2060; J2310; J7030